=== PATIENT | male | born 1945 | race Caucasian/White ===

== ENCOUNTER 2018-09-14 14:41 | Outpatient (CLI) | payer MEDICARE ==
--- NOTE | 2018-09-14 17:42 | CT ---
CT ABDOMEN AND PELVIS WITHOUT CONTRAST: 09/14/18 Multiple axial tomograms obtained through the abdomen and pelvis without IV enhancement. INDICATIONS: Left flank pain. Hematuria. Low back pain. FINDINGS: Lung basis show chronic lung parenchymal change. Liver, spleen, and pancreas unremarkable. Adrenal glands normal. Kidneys unremarkable. No evidence of hydronephrosis or urinary tract calculus. Ureters are normal frieda iber. Urinary bladder mildly distended and unremarkable. Prostate unremarkable. There is a small cyst in the anterior left renal cortex measuring 1.5 cm. Small bowel loops normal caliber. Appendix appears normal. Diverticulosis of the left colon and sigmo id. No definite evidence of acute diverticulitis. There may be some minimal stranding around the lowe r descending colon which could potentially represent early inflammatory change. There is no evidence of extraluminal gas, fluid, or abscess. Aorta is calcified but normal caliber. No adenopathy. Osseous structures show degenerative spine melara ges. IMPRESSION: Diverticulosis of the left colon and sigmoid. No definite CT evidence for diverticulitis although que stion some minimal inflammatory stranding around the left colon. POS: [facility]
== END 2018-09-14 14:42 | disposition home or self-care (01) ==
LOC: BICCT 14:41
PROVIDERS: ATTEND Nurse Practitioner Family
DX: M54.5 Low back pain (principal); K57.30 Diverticulosis of large intestine without perforation or abscess without bleeding
CPT/HCPCS: 74176

== ENCOUNTER 2018-11-01 17:28 | Outpatient (CLI) | payer MEDICARE ==
--- NOTE | 2018-11-01 18:11 | RAD ---
CERVICAL SPINE FOUR VIEWS: Indication: Chronic neck pain, worsening. Comparison: None. FINDINGS: There is multilevel disc degenerative disease of the cervical spine, most pronounced at C5-6 and C6-7 . There is multilevel facet osteoarthrosis most pronounced at C6-7. Prevertebral soft tissues are nor mal appearing. There are carotid body calcifications on the right. Lung apices are clear. Lateral mas ses are symmetric. IMPRESSION: Mild spondylosis of the cervical spine. POS: [facility]
== END 2018-11-01 17:29 | disposition home or self-care (01) ==
LOC: SCSRAD 17:28
PROVIDERS: ATTEND Family Medicine
DX: M54.2 Cervicalgia (principal); M47.812 Spondylosis without myelopathy or radiculopathy, cervical region
CPT/HCPCS: 72040

== ENCOUNTER 2018-11-25 14:23 | Outpatient (CLI) | payer MEDICARE ==
--- NOTE | 2018-11-25 15:18 | MRI ---
MRI cervical spine: 11/25/2018 COMPARISON: None HISTORY: Chronic neck pain, radiculopathy TECHNIQUE: Multiplanar multisequence MR imaging of the cervical spine provided without contrast media FINDINGS: The sagittal STIR imaging demonstrates no focal area of osseous marrow edema. There is moderate degenerative change at the atlantoaxial interspace. C2-3: Mild left facet hypertrophy with no central canal or neural foraminal stenosis. C3-4: Facet and uncovertebral osteophyte formation on the left. No significant central canal or neura l foraminal stenosis. C4-5: Facet and uncovertebral osteophyte formation on the left with mild left neural foraminal stenos is. No significant central canal or right neural foraminal stenosis. C5-6: There is a small right paracentral disc protrusion. There is mild bilateral facet hypertrophy. No significant central canal or neural foraminal stenosis. C6-7: There is disc space narrowing and disc desiccation with mild disc bulge partially effacing the ventral thecal sac and causing a mild degree of central canal stenosis. Facet and uncovertebral osteophyte formation noted bilaterally with mild left and moderate right neural foraminal stenosis. C7-T1: Mild bilateral facet hypertrophy. No significant central canal or neural foraminal stenosis. There is no focal area of abnormal signal intensity identified within the cervical cord. IMPRESSION: Cervical spine degenerative change as detailed above
== END 2018-11-25 14:24 | disposition home or self-care (01) ==
LOC: SCSMRI 14:23
PROVIDERS: ATTEND Family Medicine
DX: M47.22 Other spondylosis with radiculopathy, cervical region (principal)
CPT/HCPCS: 72141

== ENCOUNTER 2019-05-20 06:49 | Outpatient (CLI) | payer MEDICARE ==
[2019-05-20 12:36] LABS: Hemoglobin 15.9 g/dL (14.0-18.0); Mean Corpuscular HGB CONC 35.8 g/dL (32.0-36.0); Mean Corpuscular Hemoglobin 33.5 pg (27.0-31.0); Mean Corpuscular Volume 93.7 fL (78.0-98.0); Platelet Count 216 thou/uL (130-400); Red Blood Cell (RBC) Count 4.73 mill/uL (4.70-6.10)
[2019-05-20 12:40] LABS: PTT 30.5 SEC (22.9-36.1)
[2019-05-20 12:50] LABS: Bacteria/HPF None Seen HPF (None Seen); Bilirubin Negative (Negative); Blood, Urine 1+ (Negative); Clarity Clear (Clear); Glucose, Urine (Dipstick) Normal (Negative); Leukocyte Negative Leu/uL (Negative); Nitrite Negative (Negative); Protein, Urine (Dipstick) 30 mg/dL (Neg-Trace); RBC/HPF 0-3 HPF (0-3); Squamous Epithelial None Seen HPF (0-3); Urobilinogen Normal mg/dL (Less than 2); WBC/HPF 0-3 HPF (0-3)
[2019-05-20 12:53] LABS: Anion Gap 13 mmol/L (10-20); BUN (Urea Nitrogen) 20 mg/dL (8.4-25.7); Calc. Creatinine Clearance 0 mL/min (70-130); Calcium 9.5 mg/dL (7.8-10.44); Carbon Dioxide 24 mmol/L (23-31); Chloride 104 mmol/L (98-107); Estimated GFR-MDRD 60; Glucose 73 mg/dL (83-110); Potassium 3.9 mmol/L (3.5-5.1); Sodium 137 mmol/L (136-145)
--- NOTE | 2019-05-20 18:52 | EKG ---
Test Reason : Blood Pressure : / mmHG Vent. Rate : 051 BPM Atrial Rate : 051 BPM P-R Int : 184 ms QRS Dur : 092 ms QT Int : 450 ms P-R-T Axes : 060 -03 007 degrees QTc Int : 414 ms Sinus bradycardia Moderate voltage criteria for LVH, may be normal variant Borderline ECG No previous ECGs available Confirmed by KAIT BEJARANO, DR. Cohen ([id number]) on 05/20/2019 6:51:50 PM Referred By: BERNARDO Confirmed By:DR. Noel CARBALLO MD
== END 2019-05-20 06:50 | disposition home or self-care (01) ==
LOC: LABBT 06:49
PROVIDERS: ATTEND Urology
DX: Z01.818 Encounter for other preprocedural examination (principal); R35.1 Nocturia; N40.0 Benign prostatic hyperplasia without lower urinary tract symptoms; R97.20 Elevated prostate specific antigen [PSA]
CPT/HCPCS: 80048; 81001; 85027; 85610; 85730; 87086; 93005; 93010

== ENCOUNTER 2019-05-27 06:12 | Day surgery (SDC) | payer MEDICARE ==
[2019-05-20 11:01] VITALS: BMI 28.1
[2019-05-27] MEDS ORDERED: Levofloxacin 500 mg/D5W 100 ml Premix Bag ONE (07:35)
[2019-05-27] MEDS ORDERED: Fentanyl 100 MCG/2 ML VIAL ONE (08:23)
[2019-05-27] MEDS ORDERED: Midazolam HCl 2 mg/2 ml Vial ONE (08:23)
[2019-05-27] MEDS ORDERED: HYDROcodone/Acetaminophen 5/325 mg Tablet ONE (09:48)
--- NOTE | 2019-05-27 10:03 | OP ---
DATE OF PROCEDURE: 05/27/2019 SERVICE: Urology. PREOPERATIVE DIAGNOSIS: Benign prostatic hyperplasia. POSTOPERATIVE DIAGNOSIS: Benign prostatic hyperplasia. PROCEDURE PERFORMED: UroLift with 4 implants. INDICATIONS FOR PROCEDURE: Mr. Moreno is a 74-year-old white male with BPH and urinary complaints. We had talked to him about doing the UroLift procedure with risks and benefits discussed and he has agreed to proceed forward. DESCRIPTION OF PROCEDURE: After identification of armband and verification of consent, the patient was brought back to the operating room, where he underwent total intravenous anesthesia. He was then placed in dorsal lithotomy position and prepped and draped in usual sterile fashion. After appropriate time-out, a 21-Honduran rigid cystoscope was introduced per urethra into the bladder. The prostate was hypertrophic with a high bladder neck as previously had been discussed and visualized on cystoscopy. The visual obturator was switched out for the UroLift device, which was then positioned at the patient's left bladder neck approximately 2 cm proximal to the actual bladder neck itself. Compression was done laterally and anteriorly to get proper lift and movement of the lateral lobe. The safety was released and the blue trigger fired to release the needle and then the ruth trigger squeezed to deploy the Nitinol tab. The UroLift was advanced forward until the white line was seen in the keyhole and then the steel tab released, which resulted in good compression of the lateral lobe and opening of the bladder neck without the steel tab being too close to the bladder neck. This procedure was repeated on the patient's right side towards the bladder neck and again towards the verumontanum somewhat stacked over the prior implants. This resulted in nice compression of lateral lobes and widening of the bladder neck. However, there is still a relatively high bladder neck present, which probably cannot be addressed by the UroLift. As such, if the patient has persistent urinary symptoms, a bladder neck releasing incisions such as a TUIBN would probably be the next appropriate step. However, I do suspect that the patient will have improved urination with this alone. We will monitor him in the outpatient setting. Satisfied that this was the most the UroLift can do. The bladder was left full and the sheath and UroLift device removed. An 18-Honduran Handy catheter was placed in the patient's bladder with 10 mL of sterile water in the balloon. The patient had his catheter attached to gravity drainage. He was taken out of positioning, awakened and taken to Day Stay for recovery in stable condition. COMPLICATIONS: None. ESTIMATED BLOOD LOSS: Minimal. RETAINED TUBES AND DRAINS: An 18-Honduran Handy catheter. SPECIMENS: None. IMPLANTS USED: Four. DISPOSITION: The patient will undergo a void trial in Day Stay area. He will then follow up with me on an outpatient basis. Job ID: [id number]
[2019-05-27] MEDS ORDERED: Oxybutynin 5 MG TAB ONE (10:32)
[2019-05-27] MEDS ORDERED: Phenazopyridine HCl 97.5 MG TABLET ONE (10:32)
== END 2019-05-27 11:05 | disposition home or self-care (01) ==
LOC: SDC 06:12
PROVIDERS: ATTEND Urology
PROC: 0T7D8DZ Dilation of Urethra with Intraluminal Device, Via Natural or Artificial Opening Endoscopic (ICD-10-PCS; principal; 2019-05-27)
DX: N40.1 Benign prostatic hyperplasia with lower urinary tract symptoms (principal); I10 Essential (primary) hypertension; E78.5 Hyperlipidemia, unspecified; I25.10 Atherosclerotic heart disease of native coronary artery without angina pectoris; G43.909 Migraine, unspecified, not intractable, without status migrainosus; Z87.891 Personal history of nicotine dependence; Z79.1 Long term (current) use of non-steroidal anti-inflammatories (NSAID); Z79.82 Long term (current) use of aspirin; Z79.899 Other long term (current) drug therapy
CPT/HCPCS: J1956; J2250; J3010

== ENCOUNTER 2019-08-30 21:08 | Inpatient (IN) | payer MEDICARE ==
[2019-08-30] MEDS ORDERED: hydrALAZINE 20 MG/ML VIAL ONE (21:51)
[2019-08-30] MEDS ORDERED: Sodium Chloride 0.9% 200 ML IV PRN (21:56)
[2019-08-30] MEDS ORDERED: Sodium Chloride 0.9% 500 ML IV SCH (22:00)
[2019-08-30 22:29] VITALS: BMI 28.2
[2019-08-30] MEDS: Acetaminophen/Codeine 30-300mg Tablet PO PRN (22:48)
--- NOTE | 2019-08-30 22:52 | HP ---
PRIMARY MANAGER LAW: Dr. Rickey Pitts. CHIEF COMPLAINT: Chest pain and shortness of breath. HISTORY OF PRESENT ILLNESS: Mr. Moreno is a pleasant 74-year-old white gentleman, who comes to the hospital for shortness of breath and chest pain. He states he has chronic chest pains, actually they are mostly back pains. This is the first time that the pain actually went to the front and he felt short of breath with it. Secondary to this, he went to the ER, where he was evaluated with an EKG that was found to have a new onset left bundle branch block. He was transferred emergently to our facility for this. Secondary to a new onset left bundle-branch block, Cardiology was called. We took him emergently to the catheterization lab, where he was found to have [id number] coronary artery disease and patent stent to the right coronary artery. He continues to have chest pain, but this is mostly from his back he states and his shortness of breath is unchanged. He denies any cough or wheezing. No hemoptysis. Mr. Moreno tells me that he has had a low-grade fever recently, cough with white phlegm production. PAST MEDICAL HISTORY: 1. Coronary artery disease with a stent placed to the right coronary artery in 2009. He had a 3.0 x 18 mm Taxus stent. This was placed in [facility]. 2. Hyperlipidemia. 3. Hypertension. 4. BPH. 5. Chronic pain syndrome. 6. Osteoarthritis. OUTPATIENT MEDICATIONS: Include, 1. Amlodipine 10 mg half tablet a day. 2. Lipitor 40 mg at bedtime. 3. Vitamin D3. 4. Nexium. 5. Eszopiclone 3 mg p.r.n. 6. Prednisone as needed for osteoarthritis flare-ups. 7. Vicodin. 8. Aspirin 81 a day. ALLERGIES: NO KNOWN DRUG ALLERGIES. SOCIAL HISTORY: Quit smoking 15 years ago. Drinks one or two drinks a day. No drugs. FAMILY HISTORY: Father at 41 of heart attack. REVIEW OF SYSTEMS: A 12-point review of systems was done and it was all negative unless stated in the history of present illness. PAST SURGICAL HISTORY: 1. Ankle surgery, had about 13 screws placed. 2. Stent placement as above. 3. Bilateral cataract surgery. 4. UroLift with four implants. This was done on 05/27/2019, by Dr. Galvez. PHYSICAL EXAMINATION: VITAL SIGNS: Temperature 97.2, pulse 95, respiratory rate 18, sat 98% on 2 L nasal cannula, and blood pressure 152/84. GENERAL: He is awake, alert, oriented x3. No distress. HEENT: Normocephalic and atraumatic. NECK: Supple. LUNGS: Clear. CARDIOVASCULAR: S1 and S2. No S3 or S4. No murmurs. ABDOMEN: Soft. Positive bowel sounds. EXTREMITIES: No edema. SKIN: Warm and dry. LABORATORY DATA: Laboratory work was reviewed. CBC; he has a white count of 6.9, hemoglobin of 15, hematocrit of 43, and platelet count of 199. Chemistry was unremarkable. Troponin is negative x1. EKG, new left bundle branch block. Chest x-ray showed no acute cardiopulmonary process. ASSESSMENT: 1. Chest pain and shortness of breath. 2. Suspect upper respiratory infection. 3. Normal coronaries on heart catheterization, not an acute myocardial infarction. 4. New onset left bundle-branch block. 5. Mild cardiomyopathy, nonischemic, likely related to left bundle branch block. PLAN: 1. Admit to telemetry. 2. Not an acute coronary syndrome, no need for heparin. 3. Continue aspirin per outpatient. 4. Continue other outpatient medications. 5. Up-titrate pain medications. 6. We will get flu titers. 7. We will consult Hospitalist Service. 8. Full code. 9. Subcu Lovenox for DVT prophylaxis. We will start this tomorrow as he may have a small hematoma in his right femoral insertion site. Job ID: [id number]
[2019-08-31 00:18] LABS: Bacteria/HPF None Seen HPF (None Seen); Bilirubin Negative (Negative); Blood, Urine Trace (Negative); Clarity Clear (Clear); Glucose, Urine (Dipstick) Normal (Negative); Leukocyte Negative Leu/uL (Negative); Nitrite Negative (Negative); Protein, Urine (Dipstick) 20 mg/dL (Neg-Trace); RBC/HPF 0-3 HPF (0-3); Squamous Epithelial None Seen HPF (0-3); Urobilinogen Normal mg/dL (Less than 2); WBC/HPF 0-3 HPF (0-3)
[2019-08-31 04:41] LABS: #Basophils 0.1 thou/uL (0.0-0.2); #Eosinphils 0.2 thou/uL (0.0-0.7); #Lymphocytes 1.4 thou/uL (1.20-3.40); #Monocytes 0.5 thou/uL (0.11-0.59); #Neutrophils 4.2 thou/uL (1.40-6.50); %Lymphocytes 21.3 % (21.0-51.0); %Monocytes 8.3 % (0.0-10.0); %Neutrophils 66.5 % (42.0-75.0); Hemoglobin 13.9 g/dL (14.0-18.0); Mean Corpuscular HGB CONC 35.1 g/dL (32.0-36.0); Mean Corpuscular Hemoglobin 32.1 pg (27.0-31.0); Mean Corpuscular Volume 91.6 fL (78.0-98.0); Mean Platelet Volume 7.5 fL (7.4-10.4); Platelet Count 175 thou/uL (130-400); RBC Distribution Width 11.9 % (11.5-14.5); Red Blood Cell (RBC) Count 4.31 mill/uL (4.70-6.10); White Blood Cell (WBC) Count 6.4 thou/uL (4.8-10.8)
[2019-08-31 05:00] LABS: Anion Gap 11 mmol/L (10-20); BUN (Urea Nitrogen) 12 mg/dL (8.4-25.7); Calc. Creatinine Clearance 79 mL/min (70-130); Calcium 9.3 mg/dL (7.8-10.44); Carbon Dioxide 25 mmol/L (23-31); Chloride 108 mmol/L (98-107); Estimated GFR-MDRD 68; Glucose 116 mg/dL (83-110); Potassium 3.7 mmol/L (3.5-5.1); Sodium 140 mmol/L (136-145)
[2019-08-31] MEDS: Carvedilol 3.125 MG TAB PO SCH ×2 (07:59→16:52)
[2019-08-31] MEDS: Amlodipine 5 MG TAB PO SCH ×2 (07:59→20:23)
[2019-08-31] MEDS: Enoxaparin Sodium 30 MG/0.3 ML SYRINGE SC SCH (08:01)
[2019-08-31] MEDS: Aspirin 81 mg Enteric Coated Tablet PO SCH (08:01)
[2019-08-31] MEDS: Acetaminophen/Codeine 30-300mg Tablet PO PRN ×3 (08:02→20:23)
[2019-08-31] MEDS: Lisinopril 5 MG TAB PO SCH (08:02)
[2019-08-31 10:26] LABS: CKMB 1.4 ng/mL (0-6.6); Troponin I 0.015 ng/mL (< 0.028)
[2019-08-31] MEDS ORDERED: Furosemide 40 MG/4 ML VIAL IVP SCH (17:45)
--- NOTE | 2019-08-31 17:52 | PRG ---
DATE OF SERVICE: 08/31/2019 SUBJECTIVE: Mr. Moreno is doing better. He has less shortness of breath. He recently was admitted for a possible DE. He had a new left bundle-branch block. He had a previous history of underlying coronary artery disease. He states he is still slightly short of breath. LVEF is estimated at 45%. OBJECTIVE: GENERAL: Patient is a pleasant male, who is in no acute distress. The patient appears their stated age. VITAL SIGNS: Blood pressure 132/65, pulse 71, temperature 97.8. NEUROLOGIC: The patient is alert and oriented x3 with no focal neurologic deficits. HEENT: Sclerae without icterus. Mouth has moist mucous membranes with normal pallor. NECK: No JVD. Carotid upstroke brisk. No bruits bilaterally. LUNGS: Crackles noted bilaterally. BACK: No scoliosis or kyphosis. CARDIAC: Regular rate and rhythm with normal S1 and S2. No S3 or S4 noted. No significant rubs, murmurs, thrills, or gallops noted throughout the precordium. PMI is not displaced. There is no parasternal heave. ABDOMEN: Soft, nontender, nondistended. No peritoneal signs present. No hepatosplenomegaly. No abnormal striae. EXTREMITIES: 2+ femoral and 2+ dorsalis pedis pulses. No cyanosis, clubbing, or edema. SKIN: No gross abnormalities. PERTINENT LABORATORY DATA: Hemoglobin 13.9, hematocrit 39.5. IMPRESSION: 1. New onset left bundle-branch block. 2. Mild cardiomyopathy. 3. Coronary artery disease. 4. Status post stent placement. RECOMMENDATIONS: 1. Add Lasix 40 mg IV. 2. Continue Coreg and lisinopril. 3. Decreased LVEF, likely related to left bundle-branch block. May consider echo. 4. The patient is doing well and would likely discharge tomorrow on p.o. Lasix. Job ID: [id number]
[2019-08-31] MEDS: Atorvastatin Calcium 40 MG TAB PO SCH (20:23)
[2019-08-31] MEDS: Meloxicam 15 MG TAB PO SCH (20:23)
[2019-09-01] MEDS: Carvedilol 3.125 MG TAB PO SCH ×2 (08:51→16:30)
[2019-09-01] MEDS: Aspirin 81 mg Enteric Coated Tablet PO SCH (08:52)
[2019-09-01] MEDS: Lisinopril 5 MG TAB PO SCH (08:52)
[2019-09-01] MEDS: Amlodipine 5 MG TAB PO SCH ×2 (08:52→20:29)
[2019-09-01] MEDS: Enoxaparin Sodium 30 MG/0.3 ML SYRINGE SC SCH (08:52)
[2019-09-01] MEDS: Acetaminophen/Codeine 30-300mg Tablet PO PRN ×2 (08:57→20:29)
[2019-09-01] MEDS: Atorvastatin Calcium 40 MG TAB PO SCH (20:30)
[2019-09-01] MEDS: Meloxicam 15 MG TAB PO SCH (20:30)
--- NOTE | 2019-09-01 21:59 | CON ---
DATE OF CONSULTATION: 09/01/2019 HISTORY OF PRESENT ILLNESS: I am seeing Mr. 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 His problems are: 1. Sustained wide-complex tachycardia, possible SVT with left bundle aberration. a. History of recurrent palpitations over the last 10 years. 2. Coronary artery disease with ischemic cardiomyopathy. a. History of myocardial infarction over 10 years ago from the RCA stents. b. History of recent echo at Dr. Pitts's office at 45% per patient's report. c. Newly found left bundle-branch block prompting left heart catheterization on this admission demonstrating patent RCA stent and no occlusive lesions in the rest of the arteries without evidence of troponin leak. 3. Intermittent left bundle-branch block noted on telemetry. 4. Hypertension and hyperlipidemia. 5. BPH. 6. Rheumatoid arthritis/osteoarthritis with chronic pain syndrome. ALLERGIES: NONE NOTED. MEDICATIONS: At home include: 1. Amlodipine. 2. Lipitor. 3. Vitamin D. 4. Nexium. 5. Eszopiclone. 6. Prednisone. 7. Vicodin. 8. Aspirin. SUBJECTIVE: Mr. Moreno is here with progressive dyspnea and chest discomforts. He has chronic pains but mostly back pain, but this time actually felt in the front and associated dyspnea was noted. He was noted to have a newly found left bundle-branch block, which prompted an emergent left heart catheterization by Dr. Kang, but found no acute coronary lesions as noted above. He ruled out from acute myocardial infarction and negative troponins, and was getting ready to be discharged when he developed rapid palpitations with 3 minutes worth of wide-complex rhythm with rates up to 160 beats per minute are seen. He felt the palpitations, but did not pass out. Denies angina despite at that time. Eventually, the episode resolved. He currently has no PND, orthopnea, or lower extremity edema. No fever, chills, or cough. No stroke-like symptoms. No neurological deficits. Rest of the 12-point review of systems are otherwise unremarkable. PAST MEDICAL HISTORY: As above. He has chronic history of palpitations prior to his heart attack 10 years ago, which were intermittent and usually responded to vagal maneuvers. More recently though he has noticed them more frequently but again, he mostly controlled them with vagal maneuvers. SOCIAL HISTORY: The patient quit smoking 15 years ago. One or two alcoholic drinks a day. Consumption is noted. No drug use. FAMILY HISTORY: Father at age 41, with a heart attack. OBJECTIVE DATA: VITAL SIGNS: Blood pressure is 159/81, heart rate 87, respirations 16, and temperature 98.4 degrees Fahrenheit. GENERAL: Alert and oriented man, in no apparent distress. NECK: Supple. Jugular veins are not distended. CHEST: Coarse without crackles. HEART: Sounds are regular to rate and rhythm. No murmur or gallop. ABDOMEN: Benign. Bowel sounds positive. EXTREMITIES: Lower extremities without edema, clubbing, or cyanosis. Pulses are adequate. NEUROLOGIC: The patient is nonfocal. MUSCULOSKELETAL: Without joint swelling or deformities. SKIN: Without rash. DATABASE: EKG is reviewed, initially revealing sinus rhythm, rate of 84 beats per minute, left bundle-branch block pattern, occasional PVCs are seen. Telemetry strips reviewed revealing intermittent narrow complex conduction with conversion to wider complex conduction seen as well. Also, the episode of wide-complex tachycardia today at 12:25 p.m. is reviewed. [place] similar to the baseline with mild QRS change only, which could raise the possibility of SVT with aberration, but ventricular tachycardia cannot be completely ruled out. LABORATORY DATA: Troponins were 0.015. Sodium 140, potassium 3.7, BUN is 12, and creatinine 1.06. White count 6.4, hemoglobin 13.9, platelet count is 175. ASSESSMENT AND PLAN: Mr. Moreno is a 74-year-old man with prior history of coronary artery disease, possibly [id number] reduced LVEF by prior workup, although data is not available to me. Now, he has presented with new-onset of left bundle-branch block, but his chest pains deemed to be not cardiac as based on the nonocclusive left heart catheterization finding. On the other hand, he has chronic palpitations and now recurrent episode is documented. There is a possibility of SVT with aberration, less likely ventricular tachycardia history of myocardial infarction that also needs to be ruled out. We discussed these possibilities. Differential diagnosis of SVT versus ventricular tachycardia were discussed with him. We also discussed the potential treatment options which clearly include electrophysiology study to exactly diagnose disease, radiofrequency ablation versus ICD implantation. The rationale, risks, benefits of this procedure were discussed including infection, bleeding, pneumothorax, tamponade, device malfunctions, and recalls. He understands and willing to proceed. We will schedule him at a near date. Thank you again for allowing me to participate in the care of this patient. Job ID: [id number]
[2019-09-02] MEDS: Enoxaparin Sodium 30 MG/0.3 ML SYRINGE SC SCH (08:14)
[2019-09-02] MEDS: Amlodipine 5 MG TAB PO SCH ×2 (08:18→20:36)
[2019-09-02] MEDS: Carvedilol 3.125 MG TAB PO SCH ×2 (08:18→18:46)
[2019-09-02] MEDS: Lisinopril 5 MG TAB PO SCH (08:18)
[2019-09-02] MEDS: Aspirin 81 mg Enteric Coated Tablet PO SCH (09:24)
[2019-09-02] MEDS ORDERED: ePHEDrine/0.9% NaCl/PF SYRINGE 50 mg/10 ml ONE (12:40)
[2019-09-02] MEDS ORDERED: Heparin (Artline) 500 ML ONE (13:52)
[2019-09-02] MEDS ORDERED: Fentanyl 100 MCG/2 ML VIAL ONE (14:01)
[2019-09-02] MEDS ORDERED: Midazolam HCl 2 mg/2 ml Vial ONE (14:01)
[2019-09-02] MEDS ORDERED: Propofol 1,000 MG/100 ML VIAL IV ONE (14:07)
[2019-09-02] MEDS ORDERED: Phenylephrine HCL 10 MG/ML VIAL ONE (14:43)
[2019-09-02] MEDS ORDERED: Isoproterenol 0.2 MG/1 ML AMP ONE (14:44)
[2019-09-02] MEDS ORDERED: Ondansetron HCl/PF 4 MG/2 ML Vial IVP PRN (15:33)
--- NOTE | 2019-09-02 18:46 | PDOC.CPN ---
- Subjective Date: 09/02/19 Time: 20:00 Interval history: No complaints. Awaiting EPS. - Review of Systems General: denies: fever/chills, weight/appetite/sleep changes, night sweats, fatigue Respiratory: denies: cough, congestion, shortness of breath, exercise intolerance Cardiovascular: denies: chest pain, palpitation, edema, paroxysmal nocturnal dyspnea, orthopnea Gastrointestinal: denies: nausea, vomiting, diarrhea, constipation, abd pain, GI bleeding Musculoskeletal: denies: pain, tenderness, stiffness, swelling, arthritis/ arthralgias - Objective Allergies/Adverse Reactions: Allergies Allergy/AdvReac Type Severity Reaction Status Date / Time No Known Allergies Allergy Verified 08/30/19 23:27 Visit Medications: Current Medications Acetaminophen/Codeine Phosphate (Tylenol #3) 1 tab PO Q4H PRN PRN Reason: Mild Pain (1-3) Last Admin: 09/01/19 20:29 Dose: 1 tab Amlodipine Besylate (Norvasc) 5 mg PO BID [facility] Last Admin: 09/02/19 08:18 Dose: 5 mg Aspirin (Ecotrin) 81 mg PO DAILY [facility] Last Admin: 09/02/19 09:24 Dose: Not Given Atorvastatin Calcium (Lipitor) 40 mg PO HS [facility] Last Admin: 09/01/19 20:30 Dose: 40 mg Carvedilol (Coreg) 3.125 mg PO BID[facility] Last Admin: 09/02/19 08:18 Dose: 3.125 mg Enoxaparin Sodium (Lovenox) 30 mg SC 0900 [facility] Last Admin: 09/02/19 08:14 Dose: Not Given Sodium Chloride (Normal Saline 0.9%) 200 mls @ 0 mls/hr IV ONE PRN PRN Reason: SBP < 90 Stop: 09/09/19 21:57 Lisinopril (Zestril) 5 mg PO DAILY [facility] Last Admin: 09/02/19 08:18 Dose: 5 mg Meloxicam (Mobic) 15 mg PO [facility] Last Admin: 09/01/19 20:30 Dose: 15 mg Vital Signs & Weight: Vital Signs Temp Pulse Resp BP BP Pulse Ox 09/02/19 15:55 97.5 F L 74 19 140/65 95 09/02/19 11:15 98.0 F 61 14 136/66 94 L 09/02/19 07:45 97.8 F 63 14 148/71 H 94 L Weight 196 lb 12.8 oz - Physical Exam General: alert & oriented x3, appears well HEENT: mucus membranes moist Neck: supple neck Cardiac: regular rate and rhythm Lungs: normal breath sounds Neuro: grossly intact Abdomen: non-tender Extremities: no clubbing - Labs Result Diagrams: 08/31/19 04:26 08/31/19 04:25 Troponin/CKMB CK-MB (CK-2) 1.4 ng/mL (0-6.6) 08/31/19 09:29 Troponin I 0.015 ng/mL (< 0.028) 08/31/19 09:29 - Assessment/Plan Assessment/Plan: 1. WCT - appears SVT in nature 2. New-onset LBBB patient overall stable. Awaiting EPS to r/o VT. No changes today.
[2019-09-02] MEDS: Atorvastatin Calcium 40 MG TAB PO SCH (20:36)
[2019-09-02] MEDS: Meloxicam 15 MG TAB PO SCH (20:36)
[2019-09-02] MEDS: Acetaminophen/Codeine 30-300mg Tablet PO PRN (20:43)
--- NOTE | 2019-09-02 21:53 | OP ---
DATE OF PROCEDURE: 09/02/2019 PROCEDURES PERFORMED: Electrophysiology study and radiofrequency ablation. REASON FOR PROCEDURE: Mr. Moreno is a 74-year-old man with prior history of cardiomyopathy, [id number] reduced LVEF of about 45%, who presented with a newly found left bundle-branch block. While on telemetry, developed rapid sustained but eventually self-terminating SVT with wide-complex, here for evaluate for nature of the arrhythmia and radiofrequency ablation. DESCRIPTION OF PROCEDURE: The patient received deep sedation by Anesthesia specialist. The left and right femoral venous area was prepped, draped, and anesthetized using subcutaneous lidocaine. On the left side, 6- and 8-[place] Islander sheaths were introduced under ultrasound guidance, through which a decapolar and octapolar catheter were advanced to the right atrium, right ventricle, His bundle, and CS position. Pacing mapping and recording were performed in each location including pacing left atrium from the CS. Following findings were noted: Baseline rhythm was sinus rhythm with RR cycle length 761 milliseconds, NV 183 milliseconds, QRS 161 milliseconds, QT 435 milliseconds, AH 89 milliseconds, HV 56 milliseconds, AV Wenckebach cycle length 350 milliseconds, retrograde Wenckebach cycle length 340 milliseconds, atrial ERP was 600/250 milliseconds. Dual AV brenda physiology was present at baseline. The ventricular pacing demonstrates concentric VA conduction. With atrial pacing, we were able to induce a narrow complex one-to-one SVT with a short VA timing, cycle length is 420 milliseconds. Ventricular overdrive pacing was attempted but promptly terminated the arrhythmia. At this point, the right femoral vein was accessed under ultrasound guidance and an 8-[place] Islander short sheath was introduced, through which a 4 mm ablation catheter was advanced to the right atrium. 3D map of the right atrium was obtained, and the His area, CS os on the slow pathway area was marked. Radiofrequency ablation of the slow pathway area was delivered. A total of 1 minute of srivastava delivered at 40 bourne with 50 degree cut-off. During the radiofrequency application, junctional beats were observed. No AV block was noted. At the end of the case, the AV Wenckebach changed to 420 milliseconds. Atrial ERP changed to 600/290 milliseconds. Ventricular extrastimuli testing was also performed with ventricular ERP of 600/240 milliseconds measured, up to 3 ventricular extrastimuli was placed with [address]-train, on and off Isuprel and we did not reinduce any ventricular arrhythmias. Burst atrial pacing also repeated, on and off Isuprel and we were not able to reinduce the supraventricular tachycardia, even though dual AV brenda physiology and echo beat was still present. CONCLUSION: 1. Inducible AV brenda reentrant tachycardia. 2. Slow pathway modification, eliminated inducibility of AV brenda reentrant tachycardia. 3. Normal AV brenda and His-Purkinje function except a baseline left bundle-branch block present. HV interval is still in acceptable range. 4. No ventricular tachyarrhythmia inducible up to 3 ventricular extrastimuli, on and off Isuprel. 5. No complications noted. Cardiac silhouette did not change on fluoroscopy, and sheaths and catheters removed in the director of cath lab. PLAN: Continue monitoring for recurrent arrhythmias. At this point, no indication for ICD present. Should there be worsening LVEF or if symptoms develop, consider Bi-V pacing. Job ID: [id number]
[2019-09-03] MEDS: Amlodipine 5 MG TAB PO SCH (08:35)
[2019-09-03] MEDS: Aspirin 81 mg Enteric Coated Tablet PO SCH (08:35)
[2019-09-03] MEDS: Carvedilol 3.125 MG TAB PO SCH (08:35)
[2019-09-03] MEDS: Lisinopril 5 MG TAB PO SCH (08:36)
[2019-09-03] MEDS: Enoxaparin Sodium 30 MG/0.3 ML SYRINGE SC SCH (08:36)
[2019-09-03 11:49] VITALS: BP 141/62; TEMP 98.4
--- NOTE | 2019-09-03 11:51 | PDOC.CPN ---
- Subjective Date: 09/03/19 Time: 11:55 Interval history: The pt seen and examined. No overnight events. No cardiac complaints. He has been walking around the hospital without any cardiac complaints or arrhythmias. - Objective Allergies/Adverse Reactions: Allergies Allergy/AdvReac Type Severity Reaction Status Date / Time No Known Allergies Allergy Verified 08/30/19 23:27 Visit Medications: Current Medications Acetaminophen/Codeine Phosphate (Tylenol #3) 1 tab PO Q4H PRN PRN Reason: Mild Pain (1-3) Last Admin: 09/02/19 20:43 Dose: 1 tab Amlodipine Besylate (Norvasc) 5 mg PO BID [facility] Last Admin: 09/03/19 08:35 Dose: 5 mg Aspirin (Ecotrin) 81 mg PO DAILY [facility] Last Admin: 09/03/19 08:35 Dose: 81 mg Atorvastatin Calcium (Lipitor) 40 mg PO HS [facility] Last Admin: 09/02/19 20:36 Dose: 40 mg Carvedilol (Coreg) 3.125 mg PO BID[facility] Last Admin: 09/03/19 08:35 Dose: 3.125 mg Enoxaparin Sodium (Lovenox) 30 mg SC 0900 [facility] Last Admin: 09/03/19 08:36 Dose: 30 mg Sodium Chloride (Normal Saline 0.9%) 200 mls @ 0 mls/hr IV ONE PRN PRN Reason: SBP < 90 Stop: 09/09/19 21:57 Lisinopril (Zestril) 5 mg PO DAILY [facility] Last Admin: 09/03/19 08:36 Dose: 5 mg Meloxicam (Mobic) 15 mg PO HS [facility] Last Admin: 09/02/19 20:36 Dose: 15 mg Vital Signs & Weight: Vital Signs Temp Pulse Resp BP BP Pulse Ox 09/03/19 08:28 97.9 F 63 18 146/66 H 95 09/03/19 03:33 97.4 F L 58 L 17 118/56 L 97 Weight 195 lb 11.2 oz - Physical Exam General: alert & oriented x3 HEENT: mucus membranes moist Cardiac: regular rate and rhythm, S1/S2 Lungs: clear to auscultation Neuro: cranial nerve 2-12 intact Extremities: no edema Skin: other (bilat fem sites with dry dressing, no mass or pain to palpitate the sites) - Labs Result Diagrams: 08/31/19 04:26 08/31/19 04:25 Troponin/CKMB CK-MB (CK-2) 1.4 ng/mL (0-6.6) 08/31/19 09:29 Troponin I 0.015 ng/mL (< 0.028) 08/31/19 09:29 - Telemetry Sinus rhythms and dysrhythmias: sinus rhythm (SR with PVCs, and intermittent LBBB) - Assessment/Plan Assessment/Plan: 1. WCT/wide complex SVT with s/p EP study with RFA on 09/02/2019 - remains is SR with intermittent LBBB with HR 70s; On Coreg 3.125mg BID 2. New-onset LBBB - s/p LHC on 08/30/2019 with normal coronary arteries with EF 45% 3. Chronic systolic HF - on Coreg, Lisinopril; not on Lasix for now since the pt is stable with RA; not candidate for AICD for now, but possible BiV PM if EF is down 4. CAD with hx of stent in 2009 - on ASA, Coreg, Lisinopril and Statin 5. HTN - stable 6. HLD - on statin 7. RA MAR reviewed * From Cardiac standpoint, the pt is stable to d/c home. The pt will f/u with Dr Pitts and Dr Barbour' office in 2 wks * The prescription of Coreg and Lisinopril were sent to his pharmacy today
--- NOTE | 2019-09-06 10:31 | EKG ---
Test Reason : Blood Pressure : / mmHG Vent. Rate : 076 BPM Atrial Rate : 076 BPM P-R Int : 198 ms QRS Dur : 156 ms QT Int : 448 ms P-R-T Axes : 061 -18 123 degrees QTc Int : 504 ms Normal sinus rhythm Left bundle branch block Abnormal ECG When compared with ECG of 30-AUG-2019 21:11, (Unconfirmed) Premature ventricular complexes are no longer Present Confirmed by TRACI GONZALES (2) on 09/06/2019 10:31:22 AM Referred By: TIERRA Confirmed By:TRACI GONZALES
--- NOTE | 2019-09-06 10:33 | EKG ---
Test Reason : A.M. Blood Pressure : / mmHG Vent. Rate : 061 BPM Atrial Rate : 061 BPM P-R Int : 196 ms QRS Dur : 094 ms QT Int : 442 ms P-R-T Axes : 060 -05 -07 degrees QTc Int : 444 ms Normal sinus rhythm Left ventricular hypertrophy with repolarization abnormality Abnormal ECG When compared with ECG of 02-SEP-2019 15:38, (Unconfirmed) Left bundle branch block is no longer Present Confirmed by TRACI GONZALES (2) on 09/06/2019 10:33:06 AM Referred By: Zan BRAUN Confirmed By:TRACI GONZALES
== END 2019-09-03 15:10 | disposition home or self-care (01) | DRG 274 ==
LOC: ERS 21:08 → SDC/OP 22:21 → 2NO 22:22
PROVIDERS: ADMIT Internal Medicine Cardiovascular Disease; ATTEND Internal Medicine Cardiovascular Disease
PROC: 4A023N7 Measurement of Cardiac Sampling and Pressure, Left Heart, Percutaneous Approach (ICD-10-PCS; 2019-08-30)
PROC: B2111ZZ Fluoroscopy of Multiple Coronary Arteries using Low Osmolar Contrast (ICD-10-PCS; 2019-08-30)
PROC: B2151ZZ Fluoroscopy of Left Heart using Low Osmolar Contrast (ICD-10-PCS; 2019-08-30)
PROC: 02583ZZ Destruction of Conduction Mechanism, Percutaneous Approach (ICD-10-PCS; principal; 2019-09-02)
PROC: 4A023FZ Measurement of Cardiac Rhythm, Percutaneous Approach (ICD-10-PCS; 2019-09-02)
PROC: 4A0234Z Measurement of Cardiac Electrical Activity, Percutaneous Approach (ICD-10-PCS; 2019-09-02)
PROC: 02K83ZZ Map Conduction Mechanism, Percutaneous Approach (ICD-10-PCS; 2019-09-02)
DX: I47.1 Supraventricular tachycardia (principal); I50.22 Chronic systolic (congestive) heart failure; I42.8 Other cardiomyopathies; I25.10 Atherosclerotic heart disease of native coronary artery without angina pectoris; E78.5 Hyperlipidemia, unspecified; I11.0 Hypertensive heart disease with heart failure; N40.0 Benign prostatic hyperplasia without lower urinary tract symptoms; G89.4 Chronic pain syndrome; M19.90 Unspecified osteoarthritis, unspecified site; I44.7 Left bundle-branch block, unspecified; M06.9 Rheumatoid arthritis, unspecified; Z95.5 Presence of coronary angioplasty implant and graft; Z79.899 Other long term (current) drug therapy; Z79.82 Long term (current) use of aspirin; Z79.52 Long term (current) use of systemic steroids; Z87.891 Personal history of nicotine dependence
CPT/HCPCS: 36415; 76942; 80048; 81003; 81015; 82553; 83880; 84484; 85025; 87804; 93005; 93010; 93306; 93458; 93613; 93621; 93623; 93653; 94760; C1769; J0360; J1644; J1650; J1940; J2250; J2370; J2704; J3010

== ENCOUNTER 2020-05-05 08:17 | Inpatient (IN) | payer MEDICARE, OTHER ==
[2020-05-05] MEDS ORDERED: Nitroglycerin 2% Ointment 1 INCH/1 GM Packet ONE (08:54)
[2020-05-05] MEDS ORDERED: Aspirin Chewable 81 MG TAB ONE (08:54)
--- NOTE | 2020-05-05 09:26 | RAD ---
CHEST 1 VIEW: HISTORY: Dyspnea and hypoxia. Shortness of breath. Chest pain. Coughing up blood. COMPARISON: 08/30/2019. FINDINGS: There is cardiomegaly. There are scattered bilateral interstitial and reticulonodular parenchymal ch anges as well as some alveolar nodular and ground-glass opacity changes bilaterally which have develo ped since the prior 08/30/2019 study. These parenchymal changes are somewhat more peripherally orient ed and certainly could be consistent with COVID-19. IMPRESSION: Interval development of bilateral interstitial, reticulonodular, and alveolar ground-glass opacity ch anges somewhat more peripherally oriented, these changes are nonspecific but certainly could be consi stent with COVID-19 pneumonia. Correlate with laboratory findings. No significant pleural effusion. Continue short-term followup. POS: OFF
[2020-05-05 09:45] LABS: #Basophils 0.1 thou/uL (0.0-0.2); #Eosinphils 0.2 thou/uL (0.0-0.7); #Lymphocytes 1.1 thou/uL (1.20-3.40); #Monocytes 0.6 thou/uL (0.11-0.59); #Neutrophils 4.9 thou/uL (1.40-6.50); %Basophils 0.9 % (0.0-1.0); %Eosinophils 3.4 % (0.0-10.0); %Lymphocytes 15.8 % (21.0-51.0); %Monocytes 8.1 % (0.0-10.0); %Neutrophils 71.7 % (42.0-75.0); Hemoglobin 13.3 g/dL (14.0-18.0); Mean Corpuscular HGB CONC 34.4 g/dL (32.0-36.0); Mean Corpuscular Hemoglobin 34.7 pg (27.0-31.0); Mean Platelet Volume 7.6 fL (7.4-10.4); Platelet Count 219 thou/uL (130-400); RBC Distribution Width 12.9 % (11.5-14.5); Red Blood Cell (RBC) Count 3.85 mill/uL (4.70-6.10); White Blood Cell (WBC) Count 6.8 thou/uL (4.8-10.8)
[2020-05-05 10:00] LABS: ALT (SGPT) 15 U/L (8-55); AST (SGOT) 18 U/L (5-34); Albumin 3.5 g/dL (3.4-4.8); Alkaline Phosphatase 123 U/L (40-110); Anion Gap 16 mmol/L (10-20); BUN (Urea Nitrogen) 12 mg/dL (8.4-25.7); Bilirubin, Total 1.4 mg/dL (0.2-1.2); Calc. Creatinine Clearance 0 mL/min (70-130); Calcium 8.6 mg/dL (7.8-10.44); Carbon Dioxide 22 mmol/L (23-31); Chloride 106 mmol/L (98-107); Estimated GFR-MDRD 75; Globulin 2.9 g/dL (2.4-3.5); Glucose 93 mg/dL (83-110); Potassium 3.2 mmol/L (3.5-5.1); Protein, Total 6.4 g/dL (5.8-8.1); Sodium 141 mmol/L (136-145)
[2020-05-05] MEDS ORDERED: Iopamidol-370 76% 500 ML 1 ML ONE (10:17)
[2020-05-05] MEDS ORDERED: cefTRIAXone\\ROCEPHIN 1 GM VIAL ONE (10:45)
[2020-05-05] MEDS ORDERED: Azithromycin 500 MG VIAL ONE (10:45)
--- NOTE | 2020-05-05 11:09 | CT ---
CT ANGIOGRAM THORAX WITH IV CONTRAST AND 3-D RECONSTRUCTIONS CLINICAL INDICATION: Dyspnea, hypoxia. Chest pain and coughing up blood for past few days. COMPARISON: None FINDINGS: Pulmonary arteries: No filling defects are seen in the pulmonary arteries to suggest a pulmonary embo nima. Aorta: Vascular calcifications are seen in the thoracic aorta. Thoracic aorta is not well opacified b ut is normal in caliber. Lungs: Diffuse emphysematous changes are seen throughout the lungs bilaterally with prominent interst itial prominence and thickening throughout the lungs bilaterally. There are scattered peripheral areas of mild honeycombing at the lung bases and lateral midlung zones. There are groundglass opaciti es seen in the lower lobes bilaterally which could be related to more acute infectious process superimposed on chronic lung changes. A more discrete nodular density is seen at the right lung base measuring 1.2 cm. Follow-up evaluation is recommended. A small left and trace right pleural effusions are present with associated atelectasis. Mediastinum: Increased number of lymph nodes are seen throughout the mediastinum. Largest measurable lymph node in the subcarinal location measures 1.3 cm in short axis dimension. Soft tissue density is also seen in each hilar regions suggesting lymphadenopathy. Soft tissue density in the left hilar region measures approximately 1.6 cm. Vascular calcifications are seen in the coronary arteries. A tiny hiatal hernia is present. Thyroid gland: Normal CT appearance. Osseous structures: Mild degenerative change seen in the spine. There is slight wedge-shaped deformit ies involving lower thoracic vertebral bodies probably attributable to physiological wedging. Bridging anterior osteophytes are present this level. Chest wall: No abnormality visualized. Upper abdomen: Within normal limits for phase of imaging. IMPRESSION: 1. No CT evidence of a pulmonary embolus. 2. Evidence of emphysematous changes with associated chronic interstitial lung changes. Groundglass o pacities are seen in each lower lobe. Findings could be related to infectious process. However, these groundglass densities could be related to chronic interstitial lung disease as well. 3. More focal nodular density right lung base measuring 1.3 cm. This could be attributable to current lung process, but follow-up evaluation is recommended to ensure stability and exclude persistent pulmonary nodule. Follow-up evaluation in 4 months is recommended. 4. Small left and trace right pleural effusions. 5. Mediastinal and hilar lymphadenopathy.
[2020-05-05] MEDS ORDERED: Senokot S 8.6-50 MG TAB PO PRN (11:40)
[2020-05-05] MEDS ORDERED: Acetaminophen 325 MG TAB PO PRN (11:40)
[2020-05-05] MEDS ORDERED: Potassium Chloride 20 MEQ TAB ONE (11:52)
[2020-05-05 12:55] LABS: Actual Bicarbonate (HCO3a) 23.5 mEq/L (22-28); Analyzer IN Cardio ER; Base Excess (BEa) -0.8 mEq/L (-2.0 to +3.0); CO2 Tension 37.8 mmHg (35.0-45.0); Calcium, Ionized (arterial) 1.14 mmol/L (1.12-1.30); Carboxyhemoglobin (COHb) 0.6 gm% (0.0-3.0); Hemoglobin (Hb) 13.7 g/dL (14.0-18.0); Potassium - ABG Lab 3.09 mmol/L (3.70-5.30); pH, Arterial 7.41 (7.35-7.45)
[2020-05-05 12:57] LABS: O2 Tension (PaO2), arterial 58.7 mmHg (> 70.0); Puncture Site RRA
[2020-05-05 13:30] LABS: Troponin I 0.017 ng/mL (< 0.028)
[2020-05-05 13:45] LABS: SARS-CoV-2 NAA Rapid Test Not Detected (NotDetected)
[2020-05-05 15:08] VITALS: BMI 24.9
[2020-05-05] MEDS ORDERED: HYDROcodone/Acetaminophen 7.5/325 mg Tablet PO PRN (16:07)
[2020-05-05] MEDS ORDERED: Zolpidem Tartrate 5 MG TAB PO PRN (16:53)
[2020-05-05 17:04] LABS: Troponin I Less than 0.010 ng/mL (< 0.028)
[2020-05-05] MEDS: Carvedilol 3.125 MG TAB PO SCH (17:37)
[2020-05-05 20:23] LABS: Magnesium 1.6 mg/dL (1.6-2.6); Phosphorus 2.1 mg/dL (2.3-4.7)
[2020-05-05] MEDS ORDERED: Electrolyte Replacement Protoc 1 EACH EACH FS SCH (21:00)
[2020-05-05] MEDS ORDERED: Magnesium Sulfate 4 GM in Sodium Chloride 0.9% 250 ML 250 ML IVPB SCH (21:00)
--- NOTE | 2020-05-05 21:14 | PDOC.EVN ---
Event Note - Event Note Event Note: Patient with a run of SVT tonight while getting up to go to the bathroom. Will recheck an EKG and check electrolytes. Was evaluated by Dr. Barbour in 08/2019 for similar.
[2020-05-05] MEDS: Atorvastatin Calcium 40 MG TAB PO SCH (21:21)
[2020-05-05] MEDS: DULoxetine 30 MG CAP PO SCH (21:21)
--- NOTE | 2020-05-06 04:04 | HP ---
CHIEF COMPLAINT: Dry cough for 5 days and poor p.o. intake, fatigue, weakness. HISTORY OF PRESENT ILLNESS: A 74-year-old male with history of arthritis and rheumatoid arthritis, presenting with several complaints including dry cough of 5 day duration and weight loss over 3 months from 212 to 176 and improved now to 183.pounds. Rheumatoid arthritis was diagnosed 4 years ago and initially on some unknown medication and lately on methotrexate. The main concern is dry cough and subjective chills and fever. He also noticed at least last 3 to 4 weeks whenever he coughs, it is a dry cough, but followed by a streak of blood, Throughout the day, at least 3 or 4 times a day, he noticed. Three weeks ago, he had normal colonoscopy performed by Dr. Kothari. REVIEW OF SYSTEMS: No productive cough, but dry cough. Denies nausea, vomiting, abdominal pain, constipation, or diarrhea. Denies any dysuria, hematuria, or hematochezia. Hemoptysis as mentioned above. No headache, blurriness, or tingling other than a generalized body ache including his arms and hands and feels that it is probably partly due to his rheumatoid arthritis. ALLERGIES: HE HAS NO KNOWN DRUG ALLERGY. PAST MEDICAL HISTORY: Arthritis diagnosed 10 years ago, rheumatoid arthritis roughly 4 years ago, hypertension. MEDICATIONS: 1. Duloxetine 30 mg twice a day. 2. Methotrexate 10 mg once a week. 3. Calcium one tablet unknown dose daily at nighttime. 4. Aspirin 81 mg daily. 5. Vitamin D3 2000 units daily. 6. Coreg 3.125 twice a day. 7. Lasix 20 mg daily. 8. Lisinopril 5 mg daily. 9. Protonix 30 mg daily. 10. Hydrocodone 7.5 half a tablet as needed. SOCIAL HISTORY: He quit smoking 20 years ago. He does have daily cocktail drinks with his . FAMILY HISTORY: Father of [place] at the age 42. Mother is healthy at 95. PHYSICAL EXAMINATION: VITAL SIGNS: His temperature is 98.3, pulse 71, blood pressure 148/74, saturating 95% with 2 L oxygen by nasal cannula. GENERAL: The patient is alert and oriented. CARDIOVASCULAR: Regular rate and rhythm without murmurs, rubs, or gallops. HEENT: Pupils are equal, round, and reactive to light. Anicteric. Mucous membranes moist. LUNGS: Anterior auscultation did not appreciate any significant abnormal sounds. ABDOMEN: Soft, nontender, and nondistended. Good bowel sounds. EXTREMITIES: Without any pitting edema. I did not look for any rheumatoid arthritis related changes in his joints. Mild erythematic on both his hands, but no significant swelling appreciated. DIAGNOSTIC DATA: Chest x-ray showed bilateral interstitial reticulonodular alveolar ground-glass opacity, certainly could be consistent with COVID pneumonia. CT angiogram is negative for PE. Mediastinal increased number of lymph nodes seen throughout the mediastinum. No CT evidence of pulmonary embolism. There is hilar lymphadenopathy. Focal nodular density, right lung base. LABORATORY DATA: COVID negative. His potassium 3.2. Rest of the CMP panel is okay in the normal range. Total bilirubin is 1.4. BNP 187. Hematology with CBC, hemoglobin 13.3, platelets of 219, WBC 6.8. IMPRESSION AND PLAN: This is a 74-year-old male presenting with the followin. Community-acquired pneumonia versus underlying history of rheumatoid arthritis flare-up and damaging his lungs as well. 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 2. Hemoptysis secondary to possibly pneumonia and underlying history of ILD. 3. Hypokalemia, that has been replaced. 4. Weight loss over 3 months. 5. Dry cough and poor p.o. intake. 6. Hemoptysis with dry cough and likely due to ILD versus other etiology including malignancy. Overall, his clinical picture sounds like rheumatoid arthritis flare-up versus community-acquired pneumonia with underlying history of ILD due to rheumatoid arthritis. CT chest as well as chest x-ray is concerning for interstitial lung disease secondary to rheumatoid arthritis that has to be ruled out. His hemoptysis also with clinical correlation could be secondary to rheumatoid lungs. Given overall body ache, this could be rheumatoid arthritis flare-up. We will continue his methotrexate, but if possible, we will consult medicare contact specialist as an inpatient. {lately i learned no rhematologist as inpatient consult] We will consult commercial loan coordinator for their input regarding hemoptysis. Meanwhile, IV antibiotics and cough suppressants. I will hold on giving methylprednisolone until commercial loan coordinator review the case. Weight loss also probably contributed by the underlying history as his GI workup recently done did not show any malignancy. He may need a high-resolution CT scan to further delineate as he does have significant mediastinal lymphadenopathy, increased number of lymph nodes throughout the mediastinum per CT scan Because of his hemoptysis, I am not going to put him on anticoagulation for deep vein thrombosis prophylaxis. SCDs only. Job ID: [id number] FRIDA
[2020-05-06] MEDS ORDERED: Lisinopril 5 MG TAB PO SCH ×2 (09:00→13:45)
[2020-05-06] MEDS ORDERED: Furosemide 20 MG TAB PO PRN (09:00)
[2020-05-06] MEDS ORDERED: Methotrexate Sodium 2.5 MG TAB PO SCH (09:00)
[2020-05-06] MEDS: Zinc Sulfate 220 MG CAP PO SCH (09:07)
[2020-05-06] MEDS: Ascorbic Acid 500 mg Chewable Tablet PO SCH (09:07)
[2020-05-06] MEDS: Azithromycin 250 MG TAB PO SCH (09:07)
[2020-05-06] MEDS: DULoxetine 30 MG CAP PO SCH ×2 (09:09→20:44)
[2020-05-06] MEDS: Cholecalciferol 1,000 UNITS (25 MCG) TAB PO SCH (09:09)
[2020-05-06] MEDS: Carvedilol 3.125 MG TAB PO SCH ×2 (09:14→17:38)
[2020-05-06] MEDS: Aspirin 81 mg Enteric Coated Tablet PO SCH (09:14)
[2020-05-06] MEDS: cefTRIAXone\\ROCEPHIN 1 GM in Sodium Chloride 0.9% 100 ML IVPB SCH (10:16)
--- NOTE | 2020-05-06 13:32 | PDOC.HOSPP ---
- Subjective Encounter Date: 05/06/20 Encounter Time: 11:20 Subjective: Patient still has ongoing hemoptysis associated with a dry cough.. His is at bedside. We know his sales development associate may not come here as an inpatient consult. Shingler evaluation pending currently. - Objective Vital Signs & Weight: Vital Signs (12 hours) Temp Pulse Resp BP BP Pulse Ox 05/06/20 11:30 97.7 F 63 16 160/75 H 97 05/06/20 09:07 63 138/65 05/06/20 07:24 97.9 F 64 16 145/68 H 98 05/06/20 03:07 98.7 F 69 20 145/70 H 94 L Weight Weight 183 lb 9.6 oz I&O: 05/05/20 05/06/20 05/07/20 06:59 06:59 06:59 Intake Total 250 Output Total 150 Balance 100 Result Diagrams: 05/05/20 09:08 05/05/20 09:08 Hospitalist ROS - Medication Medications: Active Medications Generic Name Dose Route Start Last Admin Trade Name Freq PRN Reason Stop Dose Admin Hydrocodone Bitart/Acetaminophen 0.5 tab 05/05/20 16:07 05/05/20 21:21 Hydrocodone/Acetaminophen 7.5/325 Mg Tablet PO 0.5 tab Q4H PRN Administration Moderate to Severe Pain (6-10) Ascorbic Acid 1,000 mg 05/06/20 09:00 05/06/20 09:07 Ascorbic Acid 500 Mg Chewable Tablet PO 1,000 mg DAILY FLAVIO Administration Aspirin 81 mg 05/06/20 09:00 05/06/20 09:14 Aspirin 81 Mg Enteric Coated Tablet PO 81 mg DAILY FLAVIO Administration Atorvastatin Calcium 40 mg 05/05/20 21:00 05/05/20 21:21 Atorvastatin Calcium 40 Mg Tab PO 40 mg HS FLAVIO Administration Azithromycin 500 mg 05/06/20 09:00 05/06/20 09:07 Azithromycin 250 Mg Tab PO 05/09/20 09:01 500 mg DAILY FLAVIO Administration Carvedilol 3.125 mg 05/05/20 17:00 05/06/20 09:14 Carvedilol 3.125 Mg Tab PO 3.125 mg BID-WM FLAVIO Administration Cholecalciferol 2,000 units 05/06/20 09:00 05/06/20 09:09 Cholecalciferol 1,000 Units (25 Mcg) Tab PO 2,000 units DAILY FLAVIO Administration Duloxetine HCl 30 mg 05/05/20 21:00 05/06/20 09:09 Duloxetine 30 Mg Cap PO 30 mg BID FLA[facility]IO Administration Ceftriaxone Sodium 1 gm/ 100 mls @ 200 mls/hr 05/06/20 11:00 05/06/20 10:16 Sodium Chloride IVPB 100 mls 1100 FLAVIO Administration Lisinopril 5 mg 05/06/20 09:00 05/06/20 09:07 Lisinopril 5 Mg Tab PO 5 mg DAILY FLAVIO Administration Methotrexate Sodium 10 mg 05/06/20 09:00 05/06/20 10:15 Methotrexate Sodium 2.5 Mg Tab PO 10 mg Q7D FLAVIO Administration Pantoprazole Sodium 40 mg 05/06/20 09:00 05/06/20 09:09 Pantoprazole 40 Mg Tab PO 40 mg DAILY FLAVIO Administration Zinc Sulfate 220 mg 05/06/20 09:00 05/06/20 09:07 Zinc Sulfate 220 Mg Cap PO 220 mg DAILY FLAVIO Administration - Exam General Appearance: NAD, awake alert Eye: PERRL ENT: normocephalic atraumatic Neck: supple Heart: RRR Respiratory: CTAB, normal chest expansion Gastrointestinal: soft, normal bowel sounds Neurological: no focal deficits Psychiatric: A&O x 3 Hosp A/P - Plan Community-acquired pneumonia 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 Nino at [phone] Last follow-up through phone roughly 3 months ago that time he has no concerns l eliana increasing body ache or hemoptysis. -He also follows with the pain specialist Dr. Edward and he got steroid injections roughly 4 months ago on his back and that helped him greatly. Weight loss -GI work-up negative as he had a colonoscopy roughly 3 months ago. Hypertension -Ceftriaxone and Zithromax -Increased to the Coreg and lisinopril dose and hydralazine as needed -Continue with methotrexate. -Pending vp software engineering evaluation.
[2020-05-06] MEDS: Atorvastatin Calcium 40 MG TAB PO SCH (20:44)
--- NOTE | 2020-05-06 21:03 | CON ---
DATE OF CONSULTATION: 05/06/2020 CHIEF COMPLAINT: Hemoptysis. HISTORY OF PRESENT ILLNESS: Mr. Kelley is a 74-year-old gentleman, who states that he was in his usual state of health until about a month ago. At that time, he reports that he began to have some shortness of breath with usual activities. About the same time, he and his went on a vacation to [place]. At an altitude of approximately 9000 feet, the patient became extremely short of breath and they had to return to lower elevations. They returned home and he was improved, but still at his level of recent exertional breathlessness. Several days ago, the patient noted the onset of hemoptysis. It was initially very light streaks mixed in with mucus and over the period of time has become more and more bloody, although still about 50% blood and 50% mucus. He states that he will have four or 5 teaspoon size aliquots first thing in the morning and then another half dozen or so throughout the course of the day. As the days have progressed, he has not had more sputum either in volume or in frequency, but does describe that it is looser and more easily expectorated. He has not had any associated fevers or chills or chest pain. He has not been exposed to any known individuals with COVID. Because of his persistent hemoptysis and radiographic evidence of possible pneumonia, he has been admitted to the hospital. In the emergency room, his CAT scan showed ground-glass opacifications which might reflect COVID. However, his initial COVID test has been negative. The patient has a past smoking history of approximately 40 years before quitting 20 years ago. 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 In addition to that, he has a known history of rheumatoid arthritis, for which he is on methotrexate. He has never been seen in the Pulmonary Clinic with regard to any pulmonary condition. He has never been told that he has emphysema nor has the known diagnosis of rheumatoid lung ever been made. He has never been diagnosed with asbestos lung disease. He has not been on home oxygen and has not been on home bronchodilators. SOCIAL HISTORY: Patient is a 74-year-old gentleman. He lives at home with his . Occupational history is as above. ALLERGIES: HE HAS NO MEDICATION ALLERGIES. HOME MEDICATIONS: Include: 1. Duloxetine 30 b.i.d. 2. Methotrexate 10 weekly. 3. Calcium daily. 4. Aspirin 81 daily. 5. Vitamin D. 6. Coreg 3.125 b.i.d. 7. Lasix 20 daily. 8. Lisinopril 5 daily. 9. Protonix daily. 10. Hydrocodone p.r.n. PAST HISTORY: Remarkable for rheumatoid arthritis. He has had myocardial infarction in the remote past. He has a past history of atrial fibrillation and had an ablation. He has not been on anticoagulation and has had no recurrence of his atrial fib at least to the best of his knowledge. FAMILY HISTORY: Negative for known COVID exposure. PHYSICAL EXAMINATION: VITAL SIGNS: Blood pressure is 176/88, he is afebrile, heart rate 76, respiratory rate 14, and pulse ox 97% on room air. GENERAL: He is a 74-year-old male, appears approximately stated age. He is awake, alert, in no distress. He is a good historian. He has no cough or episodes of hemoptysis during our encounter. He speaks in full sentences. HEENT: He has no icterus. There is no obvious bleeding source in the nasal passage or the oropharynx. He has no palpable adenopathy. LUNGS: Bilateral rales in the basilar lung zones. HEART: Regular rate and rhythm. He has an intermittent S3. ABDOMEN: Soft. There is no organomegaly. Bowel sounds are normal. EXTREMITIES: Without cyanosis, clubbing, or edema. LABORATORY DATA: White count is 6800, hemoglobin is 13.3 with hematocrit of 38.8, and platelet count of 219,000. The differential is normal. His blood gas on unspecified oxygen includes pH 7.4, CO2 of 38, pO2 of 59, and bicarbonate of 25. Chemistry panel includes sodium 141, potassium 3.2, chloride 106, CO2 is 33, BUN is 12, and creatinine 0.98. Lactic acid was negative. LFTs were negative. Troponin series is negative. Serum protein electrophoresis is negative. COVID is negative. Chest x-ray shows normal size cardiac silhouette. He has patchy consolidation in the peripheral lung zones bilaterally with an additional area of consolidation in the left base which somewhat obscures the left heart border. There is no effusion. CT of the chest with contrast and PE protocol is negative for pulmonary embolus. The lungs demonstrate bullous emphysema with interstitial prominence peripherally, including honeycombing of the bases. Additional ground-glass opacification is seen. IMPRESSION: 1. Hemoptysis. The patient presents with hemoptysis over about 3 days. This is not associated with dramatic purulence, fevers or chills. He has no leukocytosis. The most common source for hemoptysis is pulmonary infection, either pneumonia or bronchitis. I agree with empiric antibiotics. Additional causes for hemoptysis include pulmonary embolus (his CT scan is negative for pulmonary embolism), cardiovalvular disease, atypical infectious processes, malignancy, trauma, autoimmune lung disease. None is obviously apparent at this point. 2. Interstitial lung disease with honeycombing. With the patient has a history of rheumatoid arthritis, which certainly may explain his fibrotic lung disease. He may have an idiopathic condition as well. Additionally, he has an extensive work history which would be a contributing factor in his differential. At this point, further diagnostic studies are not warranted and generally are of low diagnostic yield and typically would not dramatically alter the treatment alternatives. For the workup of the interstitial tissue lung disease, I would recommend followup in the office. 3. Dyspnea, secondary to above. Patient's COVID test is negative, although x-ray is somewhat concerning. However, clearly we have an alternative diagnosis. 4. Remote history of atrial fibrillation. 5. History of rheumatoid arthritis, on methotrexate, currently on 10 mg weekly. That dose could be substantially increased if necessary for more optimal control of his rheumatoid. RECOMMENDATIONS: 1. I agree with empiric antibiotics directed community-acquired bacterial infections. I would not pursue further evaluation of interstitial lung disease while admitted at this time, but certainly that may be appropriate in the office as an outpatient. I would recommend that he be followed up in the Pulmonary Clinic and in fact, we will continue to see him here in the hospital. 2. His CT is negative for PE. He should be on DVT prophylaxis with SCDs, but not on Lovenox. 3. A determination regarding need for home oxygen is deferred until the time of discharge. Thank you for this consultation. Job ID: [id number]
[2020-05-07] MEDS ORDERED: Lisinopril 5 MG TAB PO SCH (09:00)
[2020-05-07] MEDS: Cholecalciferol 1,000 UNITS (25 MCG) TAB PO SCH (09:04)
[2020-05-07] MEDS: Azithromycin 250 MG TAB PO SCH (09:04)
[2020-05-07] MEDS: Carvedilol 3.125 MG TAB PO SCH ×2 (09:04→16:36)
[2020-05-07] MEDS: DULoxetine 30 MG CAP PO SCH (09:05)
[2020-05-07] MEDS: Aspirin 81 mg Enteric Coated Tablet PO SCH (09:05)
[2020-05-07] MEDS: Zinc Sulfate 220 MG CAP PO SCH (09:05)
[2020-05-07] MEDS: Ascorbic Acid 500 mg Chewable Tablet PO SCH (09:05)
[2020-05-07 09:07] LABS: Anion Gap 13 mmol/L (10-20); BUN (Urea Nitrogen) 6 mg/dL (8.4-25.7); Calc. Creatinine Clearance 82 mL/min (70-130); Calcium 8.5 mg/dL (7.8-10.44); Carbon Dioxide 23 mmol/L (23-31); Chloride 106 mmol/L (98-107); Estimated GFR-MDRD 79; Glucose 97 mg/dL (83-110); Potassium 3.4 mmol/L (3.5-5.1); Sodium 139 mmol/L (136-145)
[2020-05-07] MEDS: PHOS-NAK 1 PKT PACK PO SCH ×2 (09:10→15:07)
[2020-05-07] MEDS ORDERED: Potassium Chloride 20 MEQ TAB PO SCH (10:15)
--- NOTE | 2020-05-07 10:47 | PRG ---
DATE OF SERVICE: 05/07/2020 SUBJECTIVE: Donavan Moreno is a 74-year-old gentleman, who presented to the hospital with chest pain. He is coughing up some blood. He is less short of breath. His CT of chest showed extensive fibrotic changes in the basilar segments. OBJECTIVE: VITAL SIGNS: Temperature 98, pulse 77, blood pressure 140/75, sats room air. CHEST: Minimal crackles. No wheezing. CARDIAC: Normal S1, S2 . ASSESSMENT AND PLAN: Probably rheumatoid lung disease versus IPF, respiratory failure, hemoptysis. The patient is improved. Less hemoptysis. No fever. He will be probably discharged home on empiric antibiotics and steroids for about a week. Outpatient followup. He is going to need a full PFT. Further recommendations after above. We will discuss with primary care physician. Job ID: [id number]
[2020-05-07] MEDS ORDERED: hydrALAZINE 10 MG TAB PO PRN (10:58)
[2020-05-07] MEDS ORDERED: hydrALAZINE 20 MG/ML VIAL SLOW IVP PRN (11:18)
[2020-05-07] MEDS: cefTRIAXone\\ROCEPHIN 1 GM in Sodium Chloride 0.9% 100 ML IVPB SCH (12:01)
[2020-05-07 13:31] VITALS: TEMP 98.2
[2020-05-07] MEDS ORDERED: Labetalol HCl 100 MG/20 ML VIAL SLOW IVP PRN (14:39)
--- NOTE | 2020-05-07 15:49 | EKG ---
Test Reason : STAT Blood Pressure : / mmHG Vent. Rate : 074 BPM Atrial Rate : 074 BPM P-R Int : 162 ms QRS Dur : 150 ms QT Int : 436 ms P-R-T Axes : 076 -18 095 degrees QTc Int : 483 ms Normal sinus rhythm Left bundle branch block Abnormal ECG No previous ECGs available Confirmed by DANIEL BRAUN M.D. ([id number]) on 05/07/2020 3:49:25 PM Referred By: ORLY Confirmed By:DANIEL BRAUN M.D.
[2020-05-07 16:35] VITALS: BP 143/91
--- NOTE | 2020-05-08 06:09 | DIS ---
DATE OF ADMISSION: 05/05/2020 DATE OF DISCHARGE: 05/07/2020 DISCHARGE DIAGNOSES: 1. Community-acquired pneumonia. 2. 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 3. Dry cough and associated hemoptysis. 4. Possible rheumatoid arthritis flare-up. 5. Weight loss probably due to chronic disease of rheumatoid arthritis as gastrointestinal workup is negative. 6. Hypertension. DISCHARGE MEDICATIONS: 1. Zithromax 500 mg daily for 7 days. 2. Prednisone 50 mg daily for 7 days. 3. Then, he will continue with his previous home medications without any changes. PHYSICAL EXAMINATION: VITAL SIGNS: On the day of discharge, temperature 98.2, pulse 71, blood pressure is 161/79, satting 94% on room air. GENERAL: The patient is alert and oriented. He is not in any acute distress. He still has ongoing hemoptysis. CARDIOVASCULAR: Regular rate and rhythm without murmurs, rubs, or gallops. LUNGS: Clear. ABDOMEN: Quite benign. CONSULT: Preforming Machine Operator. HOSPITAL COURSE: 74-year-old male with a 4-year history of rheumatoid arthritis, presented with community-acquired pneumonia with underlying possible interstitial lung disease secondary to rheumatoid arthritis. The patient also had 3 to 4 days of hemoptysis associated with dry cough. Preforming Machine Operator followed and decided that they will follow up in the clinic. Regarding his weight loss, he had a recent GI workup. Colonoscopy negative for any abnormality. The patient does have accelerated hypertension, probably secondary to acute stress of hemoptysis and lung dysfunction. His home medications have been adjusted, Coreg and lisinopril. He needs to follow up with his primary care physician regarding further titration. He is hemodynamically stable, cleared by the business analysis consultant for outpatient workup. DISCHARGE INSTRUCTIONS: Activity as tolerated. Regular diet. Follow up with PCP in 1 week. Follow up with Dr. Nino in 1 to 2 weeks. Follow up with business analysis consultant, Dr. Rohit Hoffman in 2 to 3 weeks. TIME SPENT: Discharge time took over 35 minutes. Job ID: [id number] [facility]
== END 2020-05-07 18:10 | disposition home or self-care (01) | DRG 196 ==
LOC: ERS 08:17 → 2NO 11:00
PROVIDERS: ADMIT Internal Medicine; ATTEND Internal Medicine
DX: M05.10 Rheumatoid lung disease with rheumatoid arthritis of unspecified site (principal); J18.9 Pneumonia, unspecified organism; J96.90 Respiratory failure, unspecified, unspecified whether with hypoxia or hypercapnia; I47.1 Supraventricular tachycardia; R04.2 Hemoptysis; Z20.828 Contact with and (suspected) exposure to other viral communicable diseases; I10 Essential (primary) hypertension; I25.10 Atherosclerotic heart disease of native coronary artery without angina pectoris; M19.90 Unspecified osteoarthritis, unspecified site; E87.6 Hypokalemia; I48.91 Unspecified atrial fibrillation; Z87.891 Personal history of nicotine dependence; Z79.899 Other long term (current) drug therapy; Z79.82 Long term (current) use of aspirin
CPT/HCPCS: 36415; 36600; 71045; 71275; 80048; 80053; 82805; 83605; 83735; 83880; 84100; 84484; 85025; 87040; 87324; 87449; 93005; 93010; 94760; 96365; 96367; J0456; J0696; J3475; J3490; J7050; J8610; Q9967; U0002

== ENCOUNTER 2020-06-01 10:02 | Outpatient (CLI) | payer MEDICARE ==
--- NOTE | 2020-06-01 11:56 | RAD ---
TWO VIEW CHEST: INDICATION: Dyspnea. COMPARISON: 05/05/2020. FINDINGS: Diffuse bilateral interstitial and hazy alveolar infiltrates are again seen, possibly increased from 05/05/2020. No confluent consolidation. Small effusions are suspected. IMPRESSION: Bilateral diffuse interstitial and hazy alveolar infiltrates, more prominent than on the prior study. POS: AGW
== END 2020-06-01 10:03 | disposition home or self-care (01) ==
LOC: BICRAD 10:02
PROVIDERS: ATTEND Internal Medicine Critical Care Medicine
DX: R06.00 Dyspnea, unspecified (principal); R91.8 Other nonspecific abnormal finding of lung field
CPT/HCPCS: 71046

== ENCOUNTER 2020-08-15 10:00 | Outpatient (CLI) | payer MEDICARE ==
--- NOTE | 2020-08-15 11:31 | CT ---
CT CHEST WITHOUT CONTRAST CLINICAL INDICATION: Interstitial lung disease. COMPARISON: 05/05/2020 FINDINGS: Aorta: Vascular calcifications are seen in the thoracic aorta as well as involving the coronary arter ies. Lungs: There has been resolution of minimal bilateral pleural effusions as well as resolution of grou ndglass densities previously seen in each lower lobe likely due to resolution of pneumonitis. Again noted are emphysematous changes throughout the lungs bilaterally greater in the upper lobes with pleu ral-based prominent linear interstitial densities again seen related to chronic interstitial lung changes. A 1.2 cm pulmonary nodule is again seen in the right lower lobe. No additional pulmonary nodule or ma ss is seen. Calcified granuloma is present in the left lower lobe. Mediastinum: No enlarged lymph nodes are seen by CT size criteria. Thyroid gland: Grossly normal nonenhanced CT appearance where imaged. Osseous structures: No suspicious lytic or sclerotic osseous lesions are identified. Degenerative haley nges are present in the spine. Chest wall: No abnormality visualized. Upper abdomen: Grossly normal nonenhanced CT appearance. IMPRESSION: 1. Persistence of right lower lobe pulmonary nodule measuring 1.2 cm. PET/CT examination may be helpf ul for further evaluation. 2. Chronic lung changes including COPD and peripheral interstitial densities related to chronic inter stitial lung changes. 3. Resolution of bilateral pleural effusions as well as resolution of groundglass densities in each l ower lobe likely related to resolution of pneumonitis.
== END 2020-08-15 10:01 | disposition home or self-care (01) ==
LOC: BICCT 10:00
PROVIDERS: ATTEND Internal Medicine Critical Care Medicine
DX: J84.9 Interstitial pulmonary disease, unspecified (principal); R91.1 Solitary pulmonary nodule; J44.9 Chronic obstructive pulmonary disease, unspecified; J98.4 Other disorders of lung
CPT/HCPCS: 71250

== ENCOUNTER 2020-09-26 09:08 | Outpatient (CLI) | payer MEDICARE ==
--- NOTE | 2020-09-26 09:25 | RAD ---
EXAM: Chest 2 views: HISTORY: Shortness of breath for 3 days COMPARISON: 06/01/2020 FINDINGS: There is an enlarged but stable cardiomediastinal silhouette. There are diffuse mixed alveolar and in terstitial opacities in the lungs. These have not changed significantly compared to the prior exam from 06/01/2020. There may be a small right pleural effusion. Degenerative changes are seen in the s pine. IMPRESSION: Scattered multifocal opacities are stable may represent chronic lung disease. Superimposed infiltrate s cannot be excluded.
== END 2020-09-26 09:09 | disposition home or self-care (01) ==
LOC: SCSRAD 09:08
PROVIDERS: ATTEND Family Medicine
DX: R06.02 Shortness of breath (principal); R91.8 Other nonspecific abnormal finding of lung field
CPT/HCPCS: 71046

== ENCOUNTER 2020-12-26 10:55 | Outpatient (CLI) | payer MEDICARE | END 2020-12-26 10:56 | disposition home or self-care (01) | LOC: BICCT 10:55 | PROVIDERS: ATTEND Internal Medicine Critical Care Medicine | DX: J18.9 Pneumonia, unspecified organism (principal); R91.1 Solitary pulmonary nodule; J98.4 Other disorders of lung; J90 Pleural effusion, not elsewhere classified; I51.7 Cardiomegaly; I70.0 Atherosclerosis of aorta | CPT/HCPCS: 71250 ==

== ENCOUNTER 2021-04-30 09:24 | Outpatient (CLI) | payer MEDICARE | END 2021-04-30 09:25 | disposition home or self-care (01) | LOC: BICCT 09:24 | PROVIDERS: ATTEND Internal Medicine Critical Care Medicine | DX: R91.1 Solitary pulmonary nodule (principal); J43.2 Centrilobular emphysema; I25.84 Coronary atherosclerosis due to calcified coronary lesion | CPT/HCPCS: 71250 ==

== ENCOUNTER 2021-05-28 20:42 | Inpatient (IN) | payer MEDICARE ==
[2021-05-29 04:47] VITALS: BMI 23.6
[2021-05-29] MEDS ORDERED: Albuterol Sulfate 2.5 mg/3 ml Neb NEB PRN (07:31)
[2021-05-29] MEDS ORDERED: Metoclopramide HCl 10 MG/2 ML VIAL IVP PRN (07:36)
[2021-05-29] MEDS ORDERED: Non-Formulary Item 1 EACH (Eszopiclone [Lunesta] 3 MG Tablet) PO PRN (07:37)
[2021-05-29] MEDS ORDERED: tiZANidine HCl 4 MG TAB PO PRN (07:37)
[2021-05-29] MEDS ORDERED: Acetaminophen 500 MG TAB PO PRN (07:39)
[2021-05-29] MEDS ORDERED: hydrALAZINE 20 MG/ML VIAL SLOW IVP PRN (07:40)
[2021-05-29] MEDS ORDERED: Meloxicam 7.5 MG TAB PO PRN (07:49)
[2021-05-29] MEDS ORDERED: Carvedilol 3.125 MG TAB PO SCH (08:00)
[2021-05-29] MEDS: HYDROcodone/Acetaminophen 5/325 mg Tablet PO PRN ×2 (08:55→20:25)
[2021-05-29] MEDS: Aspirin 81 mg Enteric Coated Tablet PO SCH (08:57)
[2021-05-29] MEDS: DULoxetine 30 MG CAP PO SCH ×2 (08:57→20:32)
[2021-05-29] MEDS: Carvedilol 6.25 MG TAB PO SCH ×2 (08:58→16:20)
[2021-05-29] MEDS: Doxycycline 100 MG CAP PO SCH ×2 (08:58→20:24)
[2021-05-29] MEDS: Allopurinol 100 MG TAB PO SCH (08:58)
[2021-05-29] MEDS ORDERED: Enoxaparin Sodium 40 MG/0.4 ML SYRINGE SC SCH (09:00)
[2021-05-29] MEDS ORDERED: DULOXETINE HCL 30 MG PO SCH (09:00)
[2021-05-29] MEDS: methylPREDNISolone Sod Succ 40 MG VIAL IVP SCH ×3 (09:01→20:26)
[2021-05-29] MEDS: Lisinopril 10 MG TAB PO SCH (09:09)
[2021-05-29 09:39] LABS: #Basophils 0.1 thou/uL (0.0-0.2); #Eosinphils 0.2 thou/uL (0.0-0.7); #Lymphocytes 1.9 thou/uL (1.20-3.40); #Monocytes 0.6 thou/uL (0.11-0.59); #Neutrophils 7.3 thou/uL (1.40-6.50); %Basophils 0.6 % (0.0-1.0); %Eosinophils 2.2 % (0.0-10.0); %Lymphocytes 18.8 % (21.0-51.0); %Neutrophils 72.5 % (42.0-75.0); Hemoglobin 14.5 g/dL (14.0-18.0); Mean Corpuscular HGB CONC 34.7 g/dL (32.0-36.0); Mean Corpuscular Hemoglobin 34.2 pg (27.0-31.0); Mean Corpuscular Volume 98.8 fL (78.0-98.0); Mean Platelet Volume 8.3 fL (7.4-10.4); Platelet Count 191 thou/uL (130-400); RBC Distribution Width 12.2 % (11.5-14.5); Red Blood Cell (RBC) Count 4.24 mill/uL (4.70-6.10); White Blood Cell (WBC) Count 10.1 thou/uL (4.8-10.8)
[2021-05-29 09:59] LABS: Anion Gap 17 mmol/L (10-20); BUN (Urea Nitrogen) 16 mg/dL (8.4-25.7); Calc. Creatinine Clearance 63 mL/min (70-130); Calcium 9.5 mg/dL (7.8-10.44); Carbon Dioxide 25 mmol/L (23-31); Chloride 103 mmol/L (98-107); Glucose 99 mg/dL (83-110); Potassium 3.5 mmol/L (3.5-5.1); Sodium 141 mmol/L (136-145)
[2021-05-29] MEDS ORDERED: FLU VACC QS2021-22(65YR UP)/PF 240 MCG/0.7 ML SYRINGE IM ONE (12:00)
[2021-05-29] MEDS ORDERED: Zolpidem Tartrate 5 MG TAB PO PRN (13:40)
[2021-05-29] MEDS: Atorvastatin Calcium 40 MG TAB PO SCH (20:25)
[2021-05-29] MEDS: Enoxaparin Sodium 40 MG/0.4 ML SYRINGE SC SCH (20:25)
[2021-05-29] MEDS ORDERED: Atorvastatin Calcium 40 MG TAB PO SCH (21:00)
[2021-05-30] MEDS: Arformoterol 15 MCG/2 ML NEB NEB SCH ×3 (00:33→18:59)
[2021-05-30] MEDS: methylPREDNISolone Sod Succ 40 MG VIAL IVP SCH ×2 (01:04→08:18)
[2021-05-30] MEDS ORDERED: Cepastat Lozenges 1 LOZ PO PRN (04:35)
[2021-05-30 05:19] LABS: #Lymphocytes 0.7 thou/uL (1.20-3.40); #Monocytes 0.2 thou/uL (0.11-0.59); #Neutrophils 9.6 thou/uL (1.40-6.50); %Eosinophils 0.1 % (0.0-10.0); %Lymphocytes 6.2 % (21.0-51.0); %Monocytes 1.7 % (0.0-10.0); %Neutrophils 91.9 % (42.0-75.0); Hemoglobin 14.7 g/dL (14.0-18.0); Mean Corpuscular Hemoglobin 33.6 pg (27.0-31.0); Mean Corpuscular Volume 98.7 fL (78.0-98.0); Mean Platelet Volume 8.2 fL (7.4-10.4); Platelet Count 231 thou/uL (130-400); RBC Distribution Width 12.3 % (11.5-14.5); Red Blood Cell (RBC) Count 4.38 mill/uL (4.70-6.10); White Blood Cell (WBC) Count 10.4 thou/uL (4.8-10.8)
[2021-05-30 05:30] LABS: Anion Gap 15 mmol/L (10-20); BUN (Urea Nitrogen) 17 mg/dL (8.4-25.7); Calc. Creatinine Clearance 70 mL/min (70-130); Calcium 9.3 mg/dL (7.8-10.44); Carbon Dioxide 24 mmol/L (23-31); Chloride 103 mmol/L (98-107); Glucose 152 mg/dL (83-110); Potassium 3.5 mmol/L (3.5-5.1); Sodium 138 mmol/L (136-145)
[2021-05-30] MEDS: Aspirin 81 mg Enteric Coated Tablet PO SCH (08:16)
[2021-05-30] MEDS: DULoxetine 30 MG CAP PO SCH ×2 (08:17→20:14)
[2021-05-30] MEDS: Doxycycline 100 MG CAP PO SCH ×2 (08:17→20:14)
[2021-05-30] MEDS: Lisinopril 10 MG TAB PO SCH (08:17)
[2021-05-30] MEDS: Allopurinol 100 MG TAB PO SCH (08:17)
[2021-05-30] MEDS: Carvedilol 6.25 MG TAB PO SCH ×2 (08:17→16:06)
[2021-05-30] MEDS ORDERED: predniSONE 20 MG TAB PO SCH (11:00)
[2021-05-30] MEDS: Enoxaparin Sodium 40 MG/0.4 ML SYRINGE SC SCH (20:14)
[2021-05-30] MEDS: Atorvastatin Calcium 40 MG TAB PO SCH (20:14)
[2021-05-31] MEDS: Arformoterol 15 MCG/2 ML NEB NEB SCH (07:29)
[2021-05-31] MEDS ORDERED: predniSONE 20 MG TAB PO SCH (08:00)
[2021-05-31] MEDS: Doxycycline 100 MG CAP PO SCH (08:36)
[2021-05-31] MEDS: Aspirin 81 mg Enteric Coated Tablet PO SCH (08:36)
[2021-05-31] MEDS: Lisinopril 10 MG TAB PO SCH (08:37)
[2021-05-31] MEDS: Allopurinol 100 MG TAB PO SCH (08:38)
[2021-05-31] MEDS: Carvedilol 6.25 MG TAB PO SCH (08:38)
[2021-05-31] MEDS ORDERED: DULoxetine 30 MG CAP PO SCH (09:00)
[2021-05-31 16:07] VITALS: BP 145/71; TEMP 97.5
== END 2021-05-31 17:33 | disposition home or self-care (01) | DRG 197 ==
LOC: 2SW 20:42
PROVIDERS: ADMIT Student in an Organized Health Care Education/Training Program; ATTEND Internal Medicine
DX: J84.9 Interstitial pulmonary disease, unspecified (principal); J90 Pleural effusion, not elsewhere classified; J98.11 Atelectasis; M05.10 Rheumatoid lung disease with rheumatoid arthritis of unspecified site; I25.10 Atherosclerotic heart disease of native coronary artery without angina pectoris; J44.9 Chronic obstructive pulmonary disease, unspecified; K21.9 Gastro-esophageal reflux disease without esophagitis; M10.9 Gout, unspecified; I10 Essential (primary) hypertension; E78.5 Hyperlipidemia, unspecified; G47.00 Insomnia, unspecified; M06.9 Rheumatoid arthritis, unspecified; R91.1 Solitary pulmonary nodule; R94.31 Abnormal electrocardiogram [ECG] [EKG]; F39 Unspecified mood [affective] disorder; Z79.82 Long term (current) use of aspirin; Z79.899 Other long term (current) drug therapy; I25.2 Old myocardial infarction; Z95.5 Presence of coronary angioplasty implant and graft; Z98.890 Other specified postprocedural states; Z87.891 Personal history of nicotine dependence
CPT/HCPCS: 36415; 80048; 85025; 90471; 90662; 93306; 94640; G0008; J0360; J1650; J2920; J7512; J7620

== ENCOUNTER 2022-02-27 09:20 | Outpatient (CLI) | payer MEDICARE | END 2022-02-27 09:21 | disposition home or self-care (01) | LOC: BICCT 09:20 | PROVIDERS: ATTEND Internal Medicine Critical Care Medicine | DX: J84.9 Interstitial pulmonary disease, unspecified (principal); J43.9 Emphysema, unspecified; R91.8 Other nonspecific abnormal finding of lung field | CPT/HCPCS: 71250 ==

== ENCOUNTER 2022-03-25 08:41 | Outpatient (CLI) | payer MEDICARE | END 2022-03-25 08:42 | disposition home or self-care (01) | LOC: BICMAMMO 08:41 | PROVIDERS: ATTEND Family Medicine | DX: Z13.820 Encounter for screening for osteoporosis (principal); M05.79 Rheumatoid arthritis with rheumatoid factor of multiple sites without organ or systems involvement; M85.851 Other specified disorders of bone density and structure, right thigh | CPT/HCPCS: 77080 ==

== ENCOUNTER 2022-05-06 09:37 | Outpatient (CLI) | payer MEDICARE | END 2022-05-06 09:38 | disposition home or self-care (01) | LOC: SCSRAD 09:37 | PROVIDERS: ATTEND Family Medicine | DX: M47.814 Spondylosis without myelopathy or radiculopathy, thoracic region (principal); M51.9 Unspecified thoracic, thoracolumbar and lumbosacral intervertebral disc disorder | CPT/HCPCS: 72072 ==

== ENCOUNTER 2022-10-02 07:46 | Outpatient (CLI) | payer MEDICARE | END 2022-10-02 07:47 | disposition home or self-care (01) | LOC: SCSMRI 07:46 | PROVIDERS: ATTEND Family Medicine | DX: M48.062 Spinal stenosis, lumbar region with neurogenic claudication (principal); M51.36 Other intervertebral disc degeneration, lumbar region; M47.816 Spondylosis without myelopathy or radiculopathy, lumbar region; M51.37 Other intervertebral disc degeneration, lumbosacral region; M48.46XA Fatigue fracture of vertebra, lumbar region, initial encounter for fracture | CPT/HCPCS: 72148 ==

== ENCOUNTER 2023-06-17 15:24 | Outpatient (CLI) | payer MEDICARE | END 2023-06-17 15:25 | disposition home or self-care (01) | LOC: RAD 15:24 | PROVIDERS: ATTEND Internal Medicine Critical Care Medicine | DX: R06.00 Dyspnea, unspecified (principal); J84.10 Pulmonary fibrosis, unspecified | CPT/HCPCS: 71046 ==

== ENCOUNTER 2023-07-10 09:04 | Inpatient (IN) | payer MEDICARE ==
[2023-07-10 09:25] LABS: #Eosinphils 0.1 thou/uL (0.0-0.7); #Monocytes 0.6 thou/uL (0.11-0.59); #Neutrophils 5.2 thou/uL (1.40-6.50); %Basophils 0.5 % (0.0-1.0); %Eosinophils 1.8 % (0.0-10.0); %Monocytes 8.2 % (0.0-10.0); %Neutrophils 67.1 % (42.0-75.0); Hematocrit 35.9 % (42.0-52.0); Mean Corpuscular HGB CONC 36.2 g/dL (32.0-36.0); Mean Corpuscular Hemoglobin 35.5 pg (27.0-31.0); Mean Corpuscular Volume 98.1 fl (78.0-98.0); Mean Platelet Volume 9.3 fL (7.4-10.4); Platelet Count 157 10x3/uL (130-400); Red Blood Cell (RBC) Count 3.66 mill/uL (4.70-6.10); White Blood Cell (WBC) Count 7.7 10x3/uL (4.8-10.8)
[2023-07-10 09:48] LABS: ALT (SGPT) 20 U/L (8-55); AST (SGOT) 21 U/L (5-34); Albumin 3.3 g/dL (3.4-4.8); Alkaline Phosphatase 71 U/L (40-110); Anion Gap 14 mmol/L (10-20); BUN (Urea Nitrogen) 11 mg/dL (8.4-25.7); Bilirubin, Total 1.6 mg/dL (0.2-1.2); Calc. Creatinine Clearance 0 mL/min (70-130); Calcium 9.4 mg/dL (7.8-10.44); Carbon Dioxide 26 mmol/L (23-31); Chloride 101 mmol/L (98-107); Estimated GFR 53; Globulin 2.9 g/dL (2.4-3.5); Glucose 113 mg/dL (83-110); Protein, Total 6.2 g/dL (5.8-8.1); Sodium 137 mmol/L (136-145)
[2023-07-10 09:52] LABS: Troponin I Less than 0.010 ng/mL (< 0.028)
[2023-07-10] MEDS ORDERED: Aspirin Chewable 81 MG TAB ONE (10:08)
[2023-07-10] MEDS ORDERED: Iopamidol-370 76% 500 ML MDV (1 ML CHARGE) ONE (11:14)
[2023-07-10 12:11] LABS: Troponin I Less than 0.010 ng/mL (< 0.028)
[2023-07-10] MEDS ORDERED: Ondansetron ODT 4 MG TAB PO PRN (12:31)
[2023-07-10] MEDS ORDERED: Ipratropium/Albuterol 3 ML NEB NEB PRN (12:58)
[2023-07-10] MEDS ORDERED: Cefepime 2 GM VIAL ONE (14:18)
[2023-07-10] MEDS ORDERED: Sodium Chloride 0.9% 100 ML ONE (14:18)
[2023-07-10] MEDS: Cefepime 2 GM in Sodium Chloride 0.9% 100 ML IVPB SCH (14:28)
[2023-07-10] MEDS: LevoFLOXacin 750 mg/D5W 750 MG in Premix 1 BAG IVPB SCH (17:28)
[2023-07-10 18:04] VITALS: BMI 24.1
[2023-07-10 18:41] LABS: Troponin I 0.017 ng/mL (< 0.028)
[2023-07-10] MEDS: Famotidine 20 MG TAB PO SCH (21:58)
[2023-07-10] MEDS ORDERED: Ketorolac Tromethamine 30 MG/ML VIAL IVP SCH (23:00)
[2023-07-11] MEDS: Cefepime 2 GM in Sodium Chloride 0.9% 100 ML IVPB SCH ×2 (03:40→14:04)
[2023-07-11] MEDS: Acetaminophen 325 MG TAB PO PRN ×4 (03:41→18:09)
[2023-07-11 05:28] LABS: Anion Gap 12 mmol/L (10-20); BUN (Urea Nitrogen) 12 mg/dL (8.4-25.7); Calc. Creatinine Clearance 55 mL/min (70-130); Calcium 8.7 mg/dL (7.8-10.44); Carbon Dioxide 26 mmol/L (23-31); Chloride 102 mmol/L (98-107); Estimated GFR 58; Glucose 84 mg/dL (83-110); Potassium 3.8 mmol/L (3.5-5.1); Sodium 136 mmol/L (136-145)
[2023-07-11] MEDS ORDERED: predniSONE 5 MG TAB PO SCH (08:00)
[2023-07-11] MEDS: Famotidine 20 MG TAB PO SCH ×2 (08:55→21:06)
[2023-07-11] MEDS ORDERED: Sodium Chloride 0.65% Nasal 44 ML BOT EA NARE PRN (11:53)
[2023-07-11] MEDS: LevoFLOXacin 750 mg/D5W 750 MG in Premix 1 BAG IVPB SCH (14:46)
[2023-07-11] MEDS ORDERED: Docusate Calcium (SURFAK) 240 MG CAP PO PRN (14:46)
[2023-07-11] MEDS ORDERED: AFRIN NASAL MIST 15 ML BOT NS PRN (14:46)
[2023-07-11] MEDS ORDERED: Sertraline 25 MG TAB PO SCH (21:00)
[2023-07-11] MEDS ORDERED: Atorvastatin Calcium 40 MG TAB PO SCH (21:00)
[2023-07-11] MEDS ORDERED: Amlodipine 10 MG TAB PO SCH (21:00)
[2023-07-11] MEDS: Calcium Carbonate 600 MG TAB PO SCH (21:05)
[2023-07-11] MEDS: HYDROcodone/Acetaminophen 10/325 mg Tablet PO PRN (21:12)
[2023-07-12] MEDS: Cefepime 1 GM in Sodium Chloride 0.9% 100 ML IVPB SCH ×2 (03:14→14:07)
[2023-07-12] MEDS: Acetaminophen 325 MG TAB PO PRN ×2 (03:19→09:08)
[2023-07-12 04:45] LABS: #Eosinphils 0.1 thou/uL (0.0-0.7); #Monocytes 0.7 thou/uL (0.11-0.59); #Neutrophils 4.7 thou/uL (1.40-6.50); %Basophils 0.6 % (0.0-1.0); %Eosinophils 2.1 % (0.0-10.0); %Lymphocytes 17.2 % (21.0-51.0); %Monocytes 9.9 % (0.0-10.0); %Neutrophils 69.6 % (42.0-75.0); Hematocrit 33.7 % (42.0-52.0); Mean Corpuscular HGB CONC 35.6 g/dL (32.0-36.0); Mean Corpuscular Hemoglobin 34.5 pg (27.0-31.0); Mean Corpuscular Volume 96.8 fl (78.0-98.0); Platelet Count 166 10x3/uL (130-400); Red Blood Cell (RBC) Count 3.48 mill/uL (4.70-6.10); White Blood Cell (WBC) Count 6.8 10x3/uL (4.8-10.8)
[2023-07-12 05:11] LABS: Anion Gap 14 mmol/L (10-20); BUN (Urea Nitrogen) 10 mg/dL (8.4-25.7); Calc. Creatinine Clearance 65 mL/min (70-130); Calcium 8.9 mg/dL (7.8-10.44); Carbon Dioxide 25 mmol/L (23-31); Chloride 103 mmol/L (98-107); Estimated GFR 71; Glucose 85 mg/dL (83-110); Potassium 3.5 mmol/L (3.5-5.1); Sodium 138 mmol/L (136-145)
[2023-07-12] MEDS ORDERED: Floranex 1 GM Packet PO SCH (09:00)
[2023-07-12] MEDS ORDERED: predniSONE 5 MG TAB PO SCH (09:00)
[2023-07-12] MEDS ORDERED: Cholecalciferol 1,000 UNITS (25 MCG) TAB PO SCH (09:00)
[2023-07-12] MEDS ORDERED: Aspirin 81 mg Enteric Coated Tablet PO SCH (09:00)
[2023-07-12] MEDS ORDERED: LACTINEX 1 TAB PO SCH (09:00)
[2023-07-12] MEDS: Famotidine 20 MG TAB PO SCH (09:10)
[2023-07-12] MEDS: Calcium Carbonate 600 MG TAB PO SCH (09:10)
[2023-07-12] MEDS: HYDROcodone/Acetaminophen 10/325 mg Tablet PO PRN (11:53)
[2023-07-12] MEDS: LevoFLOXacin 750 mg/D5W 750 MG in Premix 1 BAG IVPB SCH (14:33)
[2023-07-12 16:44] VITALS: BP 121/73; TEMP 98.1
[2023-07-12] MEDS ORDERED: Carvedilol 3.125 MG TAB PO SCH ×2 (17:00)
[2023-07-12] MEDS ORDERED: Carvedilol 6.25 MG TAB PO SCH (17:00)
== END 2023-07-12 16:32 | disposition home or self-care (01) | DRG 177 ==
LOC: ERS 09:04 → ERHOLD 12:16 → 2NO 17:21
PROVIDERS: ADMIT Internal Medicine; ATTEND Internal Medicine
DX: J69.0 Pneumonitis due to inhalation of food and vomit (principal); J96.01 Acute respiratory failure with hypoxia; N17.9 Acute kidney failure, unspecified; J44.0 Chronic obstructive pulmonary disease with (acute) lower respiratory infection; J84.9 Interstitial pulmonary disease, unspecified; I25.10 Atherosclerotic heart disease of native coronary artery without angina pectoris; M06.9 Rheumatoid arthritis, unspecified; E78.00 Pure hypercholesterolemia, unspecified; M10.9 Gout, unspecified; M19.90 Unspecified osteoarthritis, unspecified site; R00.1 Bradycardia, unspecified; I48.0 Paroxysmal atrial fibrillation; I12.9 Hypertensive chronic kidney disease with stage 1 through stage 4 chronic kidney disease, or unspecified chronic kidney disease; N18.30 Chronic kidney disease, stage 3 unspecified; I44.7 Left bundle-branch block, unspecified; Z87.891 Personal history of nicotine dependence; Z79.82 Long term (current) use of aspirin; Z79.899 Other long term (current) drug therapy; Z98.890 Other specified postprocedural states; Z95.5 Presence of coronary angioplasty implant and graft
CPT/HCPCS: 36415; 71045; 71275; 80048; 80053; 83880; 84484; 85025; 93005; J0692; J1650; J1885; J1956; J3490; J7512; Q0162; Q9967

== ENCOUNTER 2023-09-22 09:18 | Outpatient (CLI) | payer MEDICARE | END 2023-09-22 09:19 | disposition home or self-care (01) | LOC: RAD 09:18 | PROVIDERS: ATTEND Internal Medicine Critical Care Medicine | DX: R06.00 Dyspnea, unspecified (principal); J43.9 Emphysema, unspecified; J84.10 Pulmonary fibrosis, unspecified; J98.4 Other disorders of lung | CPT/HCPCS: 71046 ==